=== PATIENT | female | born 1975 | race Caucasian/White ===

== ENCOUNTER 2018-02-06 22:00 | Emergency (ER) | payer MEDICARE, SELFPAY ==
[2018-02-06 22:01] VITALS: BP 135/82; PULSE 85; RESP 14; RESP 16; TEMP 36.5; O2SAT 98; BMI 35.9
[2018-02-06 22:05] VITALS: O2SAT 98
--- NOTE | 2018-02-06 23:30 | CT_ITS ---
STUDY: CT FACIAL BONES WITHOUT CONTRAST REASON FOR EXAM: Female, 42 years old. Fall RADIATION DOSAGE (If Supplied By Facility): CTDIvol = ( 29.38 ) mGy, DLP = ( 518.07 ) mGycm TECHNIQUE: The patient was scanned in a multi detector CT scanner. Sagittal and coronal images were reconstructed. Individualized dose optimization techniques were used for this CT. COMPARISON: None. FINDINGS: There is RIGHT frontal and periorbital soft tissue swelling. There is partial visualization of the LEFT temporal craniotomy. Normal orbital ron and orbital contents. Normal nasal bones and anterior nasal spine. Normal facial bones. There is no demonstrated fracture. Normal visualized paranasal sinuses. CT/Sinus/Facial Bone IMPRESSION: There is RIGHT frontal and periorbital soft tissue swelling. There is partial visualization of the LEFT temporal craniotomy. There is NO acute bony injury. The paranasal sinuses are clear. Electronically Signed: Bryn Goyal MD at 1:05 EDT , Service support ,
--- NOTE | 2018-02-06 23:30 | CT_ITS ---
STUDY: CT CERVICAL SPINE WITHOUT CONTRAST REASON FOR EXAM: Female, 42 years old. Fall RADIATION DOSAGE (If Supplied By Facility): CTDIvol = ( 33.20 ) mGy, DLP = ( 636.23 ) mGycm TECHNIQUE: High resolution transaxial imaging was performed without contrast material. Sagittal and coronal images were reconstructed. Individualized dose optimization techniques were used for this CT. COMPARISON: None FINDINGS: Normal craniovertebral junction. Normal anterior atlantoaxial articulation. Normal odontoid process. Normal cervical lordosis. Normal vertebral bodies and posterior osseous elements. C2-3: Normal endplates. Normal disc height and morphology. Normal central canal and intervertebral neuroforamina. C3-4: Normal endplates. Normal disc height and morphology. Normal central canal and intervertebral neuroforamina. C4-5: Normal endplates. Normal disc height and morphology. Normal central canal and intervertebral neuroforamina. C5-6: Normal endplates. Normal disc height and morphology. Normal central canal and intervertebral neuroforamina. C6-7: Normal endplates. Normal disc height and morphology. Normal central canal and intervertebral neuroforamina. C7-T1: Normal endplates. Normal disc height and morphology. Normal central canal and intervertebral neuroforamina. Normal visualized soft tissue structures. CT/Spine Cervical without Contras IMPRESSION: Normal unenhanced CT examination of the cervical spine. Electronically Signed: Bryn Goyal MD at 1:33 EDT , Service support ,
--- NOTE | 2018-02-06 23:30 | CT_ITS ---
STUDY: CT BRAIN WITHOUT CONTRAST REASON FOR EXAM: Female, 42 years old. Headache RADIATION DOSAGE (If Supplied By Facility): CTDIvol = ( 44.99 ) mGy, DLP = ( 812.98 ) mGycm TECHNIQUE: Transaxial CT imaging of the brain was performed without administration of intravenous contrast material. Individualized dose optimization techniques were used for this CT. COMPARISON: None. FINDINGS: There is RIGHT frontal and periorbital soft tissue swelling. There is a large LEFT frontal craniotomy defect. There is NO skull fracture. Paranasal sinuses are clear. There is a LEFT frontal and parietal subdural hematoma which appears acute and measures up to 1 cm in thickness. There is NO mass effect or midline shift due to extensive encephalomalacia in the LEFT hemisphere presumably from prior infarct. There is also encephalomalacia in the medial LEFT occipital lobe from prior infarct. There is ex vacuo dilatation of the LEFT lateral ventricle. There is chronic deep white matter ischemic gliosis. There is NO evidence of acute ischemic event. The posterior fossa is unremarkable. CT/Brain/Head without Contrast IMPRESSION: There is RIGHT frontal and periorbital soft tissue swelling. There is a large LEFT frontal craniotomy defect. There is a LEFT frontal and parietal subdural hematoma which appears acute and measures up to 1 cm in thickness. There is NO mass effect or midline shift due to extensive encephalomalacia in the LEFT hemisphere presumably from prior infarct. There is also encephalomalacia in the medial LEFT occipital lobe from prior infarct. There is ex vacuo dilatation of the LEFT lateral ventricle. There is chronic deep white matter ischemic gliosis. There is NO evidence of acute ischemic event. N.B. : The above information has been verbally conveyed by Bryn Goyal MD to Isaac Steinberg MD, on 02/07/2018 01:04:43 (ET). Electronically Signed: Bryn Goyal MD at 1:00 EDT , Service support ,
[2018-02-07 00:34] VITALS: BP 122/80
--- NOTE | 2018-02-07 01:25 | ED.VISSUMM ---
- ER Visit Summary Date of Service: 02/07/18 Chief Complaint: Fall with head injury History of Present Illness: The patient is a 42 F presenting for evaluation secondary to fall with head injury. Patient has a very unfortunate prior history of having a left-sided subdural hematoma that resulted in multiple brain surgeries and chronic right-sided hemiparesis. Patient today was attempting to transfer in the bathroom from wheelchair to the toilet and she suffered a mechanical fall. She struck the right side of her face on the ground. Patient denies that there is any loss of consciousness and the patient's family member also corroborates this. Patient is complaining of pain on the right side of her face but denies any weakness or numbness she does endorse a headache she also endorses some feelings of visual changes and she denies any nausea or vomiting. She is not on any sort of anticoagulants. She is also complaining of some neck pain associated with this. Physical Examination: Vital signs within normal limits. Well-nourished female no acute distress. Head is normocephalic with evidence of right sided periorbital hematoma also involving the upper eyelid. PRL, EOMI, no evidence of hyphema. TMs are clear no evidence of hemotympanum. Neck is tender diffusely with both spinal and paraspinal tenderness no evidence of step-offs. Heart is regular rate and rhythm no murmurs lungs sounds clear. Abdomen soft and nontender. Back was nontender. Extremities are atraumatic. Skin is atraumatic. Patient is alert and oriented x3 GCS is 15 she has right-sided hemiparesis at baseline which is unchanged and exhibits no left-sided deficits at this time. Test Results: CT brain shows chronic postsurgical changes on the left with a new subdural hematoma with no evidence of midline shift. Emergency Department Course and Treatment: Patient presented for evaluation secondary to fall. CT imaging demonstrated the patient to have a subdural hematoma. I went back and discussed this with the patient and family and informed her that she required transfer to a trauma center. Patient was adamantly against being transferred back to [facility] and was actually attempting to completely refused to go to a trauma center altogether. She actually is of sound mind, and currently has decision-making capacity as she is alert and oriented, not intoxicated, and while she has a head injury this does not seem to be affecting her decision-making faculties. I had an extensive conversation with her and ultimately was able to get her to agree to go to a different trauma center and [facility] was decided upon. They were contacted and ultimately accepted the patient. As the patient is currently mentating normally, and has decreased brain matter on the side of her subdural hematoma I do not necessarily think that she warrants transfer by air at this point, so the patient will be transferred by ground. Patient was transferred in guarded condition. Disposition: Transfer Impression: 1. Subdural hematoma Critical care time 35 minutes This note was generated with [employer] dictation software. It may contain incorrect words, spelling, and punctuation that were not noted in review of the chart prior to signing ED Disposition - Plan for ED Patient: Disposition: [facility] Chief Complaint: Fall Referrals: Care Physician,No Primary [Primary Care Provider] -
--- NOTE | 2018-02-07 01:29 | ED.DCSUM_ITS ---
- ER Visit Summary Date of Service: 02/07/18 Chief Complaint: Fall with head injury History of Present Illness: The patient is a 42 F presenting for evaluation secondary to fall with head injury. Patient has a very unfortunate prior history of having a left-sided subdural hematoma that resulted in multiple brain surgeries and chronic right-sided hemiparesis. Patient today was attempting to transfer in the bathroom from wheelchair to the toilet and she suffered a mechanical fall. She struck the right side of her face on the ground. Patient denies that there is any loss of consciousness and the patient's family member also corroborates this. Patient is complaining of pain on the right side of her face but denies any weakness or numbness she does endorse a headache she also endorses some feelings of visual changes and she denies any nausea or vomiting. She is not on any sort of anticoagulants. She is also complaining of some neck pain associated with this. Physical Examination: Vital signs within normal limits. Well-nourished female no acute distress. Head is normocephalic with evidence of right sided periorbital hematoma also involving the upper eyelid. PRL, EOMI, no evidence of hyphema. TMs are clear no evidence of hemotympanum. Neck is tender diffusely w ith both spinal and paraspinal tenderness no evidence of step-offs. Heart is regular rate and rhythm no murmurs lungs sounds clear. Abdomen soft and nontender. Back was nontender. Extremities are atraumatic. Skin is atraumatic. Patient is alert and oriented x3 GCS is 15 she has right-sided hemiparesis at baseline which is unchanged and exhibits no left-sided deficits at this time. Test Results: CT brain shows chronic postsurgical changes on the left with a new subdural hematoma with no evidence of midline shift. Emergency Department Course and Treatment: Patient presented for evaluation secondary to fall. CT imaging demonstrated the patient to have a subdural hematoma. I went back and discussed this with the patient and family and informed her that she required transfer to a trauma center. Patient was adamantly against being transferred back to [facility] and was actually attempting to completely refused to go to a trauma center altogether. She actually is of sound mind, and currently has decision-making capacity as she is alert and oriented, not intoxicated, and while she has a head injury this does not seem to be affecting her decision-making faculties. I had an extensive conversation with her and ultimately was able to get her to agree to go to a different trauma center and [facility] was decided upon. They were contacted and ultimately accepted the patient. As the patient is currently mentating normally, and has decreased brain matter on the side of her subdural hematoma I do not necessarily think that she warrants transfer by air at this point, so the patient will be transferred by ground. Patient was transferred in guarded condition. Disposition: Transfer Impression: 1. Subdural hematoma Critical care time 35 minutes This note was generated with [employer] dictation software. It may contain incorrect words, spelling, and punctuation that were not noted in review of the chart prior to signing ED Disposition - Plan for ED Patient: Disposition: [facility] Chief Complaint: Fall Referrals: Care Physician,No Primary [Primary Care Provider] -
[2018-02-07] MEDS: Ondansetron 4 MG/2 ML Vial IV (01:57)
[2018-02-07] MEDS: fentaNYL 100 MCG/2 ML Ampul 25 MCG IV (02:07)
== END 2018-02-07 02:48 | disposition short-term general hospital (02) ==
PROVIDERS: Emergency Provider Emergency Medicine
DX: S06.5X0A Traumatic subdural hemorrhage without loss of consciousness, initial encounter (principal); W18.12XA Fall from or off toilet with subsequent striking against object, initial encounter; G40.909 Epilepsy, unspecified, not intractable, without status epilepticus; G81.91 Hemiplegia, unspecified affecting right dominant side; Z79.899 Other long term (current) drug therapy; Z79.82 Long term (current) use of aspirin
CPT/HCPCS: 70450; 70486; 72125; 96374; 96375; 99285; A4216; J2405

== ENCOUNTER 2018-08-06 10:07 | Outpatient (RCR) | payer MEDICARE, SELFPAY ==
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
== END 2018-08-06 19:00 | disposition home or self-care (01) ==
LOC: PT 10:07
PROVIDERS: Family Provider Nurse Practitioner Adult Health; PCP Nurse Practitioner Adult Health; Referring Provider Nurse Practitioner Adult Health; Visit Provider Nurse Practitioner Adult Health
DX: G44.321 Chronic post-traumatic headache, intractable (principal); M62.81 Muscle weakness (generalized); R29.6 Repeated falls; G81.01 Flaccid hemiplegia affecting right dominant side
CPT/HCPCS: 97162

== ENCOUNTER 2019-01-23 14:14 | Emergency (ER) | payer MEDICARE, SELFPAY ==
[2019-01-23 14:21] VITALS: BP 127/82; PULSE 97; RESP 16; TEMP 36.9; O2SAT 97; BMI 37.1
[2019-01-23 14:53] LABS: Mucous, Urine 0 SEEN /hpf (<or=2+)
[2019-01-23 14:57] LABS: Color, Urine Yellow (Yellow); Glucose, Dipstick Normal (Normal); Ketone-Dipstick Negative (Negative); Leukocyte Esterase-Dipstick 100 /ul (Negative); Nitrite-Dipstick Positive (Negative); Occult Blood-Urine 50 /ul (Negative); Protein-Dipstick Negative (Negative); Urine Bilirubin Dipstick Negative (Negative); Urine Clarity Clear (Clear); Urine Urobilinogen 1 mg/dl (Normal)
[2019-01-23 14:59] LABS: Internal QC Validated? YES +Cl - CLEAR BKGD; Pregnancy, Urine Negative Negative
[2019-01-23 15:05] LABS: Bacteria 2+ /hpf (None Seen); Red Blood Cells-Urine 0-5 SEEN /hpf (0-5); Squamous Epithelial Cells - UA 0-5 SEEN /hpf (5-10); White Blood Cells 10-25 SEEN /hpf (0-5)
--- NOTE | 2019-01-23 15:23 | ED.DCSUM_ITS ---
- ER Visit Summary Date of Service: 01/23/19 Chief Complaint: Pelvic pain History of Present Illness: The patient is a 43 F with pelvic pain for several days. Denies discharge or bleeding. Denies any urinary symptoms. Denies fever or systemic symptoms. She is not currently on antibiotics. Physical Examination: Afebrile and vital signs are unremarkable. Patient has right-sided hemiparesis. She is alert and oriented. Abdomen soft and nontender. Pelvic exam was chaperoned by Maikel and Nalini, both RNs. Patient has no tenderness or masses noted. No lesions, but she does have a thick adherent white discharge. Otherwise exam was unremarkable. Test Results: Urinalysis shows signs of infection. test was negative. Emergency Department Course and Treatment: I believe patient is appropriate for outpatient therapy. She has signs of both a UTI and a yeast infection. She was treated with Diflucan here. We will start a course of Keflex. She will take an additional dose of Diflucan after her antibiotic course. She should return right away for any new or worsening issues. Treatment Plan: As above Disposition: Discharged Impression: 1. Yeast vaginitis 2. UTI, cystitis This note was generated with [employer] dictation software. It may contain incorrect words, spelling, and punctuation that were not noted in review of the chart prior to signing ED Disposition - Plan for ED Patient: Referrals: Kacie Smiley, [facility] [Primary Care Provider] -
--- NOTE | 2019-01-23 15:25 | ED.DEP ---
ED Disposition - Plan for ED Patient: Instructions: Understanding Urinary Tract Infections (UTIs) Prescriptions: Fluconazole [Diflucan] 150 mg PO X1 #1 tab Prescription Printed Cephalexin [Keflex] 500 mg PO Q6 #28 cap Prescription Printed Referrals: Kacie Smiley, [employer] [Primary Care Provider] -
[2019-01-23] MEDS: Fluconazole 100 MG Tablet 150 MG PO (15:31)
[2019-01-23] MEDS: Cephalexin 250 MG Capsule 500 MG PO (15:32)
[2019-01-23] MEDS: Ibuprofen 600 MG Tablet PO (15:33)
[2019-01-23 15:34] VITALS: BP 105/58
== END 2019-01-23 17:56 | disposition home or self-care (01) ==
LOC: ED 14:53
PROVIDERS: Emergency Provider Emergency Medicine; Family Provider Nurse Practitioner Adult Health; PCP Nurse Practitioner Adult Health
DX: B37.3 Candidiasis of vulva and vagina (principal); N39.0 Urinary tract infection, site not specified; G81.91 Hemiplegia, unspecified affecting right dominant side; Z86.73 Personal history of transient ischemic attack (TIA), and cerebral infarction without residual deficits; Z79.899 Other long term (current) drug therapy; Z72.0 Tobacco use
CPT/HCPCS: 81001; 81025; 99285; P9612

== ENCOUNTER 2019-01-31 13:08 | Emergency (ER) | payer MEDICARE, SELFPAY ==
[2019-01-31 13:19] VITALS: BP 123/92; PULSE 75; RESP 16; TEMP 37.2; O2SAT 97; BMI 37.5
--- NOTE | 2019-01-31 13:44 | CT_ITS ---
STUDY: CT FACIAL BONES WITHOUT CONTRAST REASON FOR EXAM: Female, 43 years old. Facial injury due to a fall. RADIATION DOSAGE (If Supplied By Facility): CTDIvol = ( 29.38 ) mGy, DLP = ( 547.46 ) mGycm TECHNIQUE: The patient was scanned in a multi detector CT scanner. Sagittal and coronal images were reconstructed. Individualized dose optimization techniques were used for this CT. COMPARISON: Comparison is made with prior examination of February 07, 2018. FINDINGS: Normal soft tissue structures. Normal orbital ron and orbital contents. Mildly depressed fracture of the nasal bones. Normal facial bones. There is no demonstrated fracture. Small air-fluid level in the left maxillary sinus. Mucosal thickening of the right maxillary sinus. CT/Sinus/Facial Bone IMPRESSION: Mildly depressed fracture nasal bones. Mucosal thickening in the right maxillary sinus as well as a small air-fluid level in the left maxillary sinus. Electronically Signed: Nitesh Kruger, at 14:27 EDT , Service support ,
--- NOTE | 2019-01-31 14:23 | ED.VISSUMM ---
- ER Visit Summary Date of Service: 01/31/19 Chief Complaint: Head injury History of Present Illness: The patient is a 43 F who presents with a head injury that occurred today. Patient states she slipped and fell in the bathroom and hit her head on the bathtub. Patient denies any loss of consciousness. Patient describes the pain is sharp and stabbing. Patient states the pain is localized to the left cheek and infraorbital area. Patient denies any visual changes. Patient denies any paresthesias or weakness. Patient admits to nausea but denies any vomiting. Physical Examination: Vital signs are stable. Patient is afebrile. Patient is in no acute distress. There is edema, ecchymosis, and tenderness over the left infraorbital area and lower eyelid. There is no palpable step-off or deformity. Extraocular muscles are grossly intact however the left eye was difficult to open and completely visualize due to the swelling. Oral mucosa is pink and moist. Neck is supple. Trachea is midline. There is no JVD noted. Heart was regular rate and rhythm. Lungs are clear and equal bilaterally. Abdomen is soft and nontender. Cranial nerves II through XII are grossly intact. There is some residual weakness on her right side due to prior stroke. Patient states this weakness is constant since her last stroke. Patient denies any new weakness. There are no sensory deficits noted. Test Results: CT scan of the facial bones was obtained. There is a mildly depressed fracture of the nasal bones. There is no other acute fracture noted. There is an air-fluid level in the left maxillary sinus. These were interpreted by the radiologist and reviewed by myself. Emergency Department Course and Treatment: Patient was given an ice pack. Patient was instructed to continue using ice. Patient was instructed to take Tylenol as needed for pain. Patient was instructed to follow-up with her primary care physician in 5 to 7 days. Patient and family understood and were agreeable with the plan. All questions were answered. Disposition: Discharge home Impression: 1. Nasal fracture This note was generated with [employer] dictation software. It may contain incorrect words, spelling, and punctuation that were not noted in review of the chart prior to signing ED Disposition - Plan for ED Patient: Disposition: Home or Assisted Living Diagnosis: Nose fracture Instructions: FACIAL CONTUSION, No Wakeup, FRACTURE, Nose (with X-Ray) Referrals: Kacie Smiley, [employer] [Primary Care Provider] - 5-7 Days
[2019-01-31] MEDS: HYDROcodone Bitartrate/Apap 5/325 Tablet PO (14:53)
--- NOTE | 2019-01-31 15:36 | ED.RN ---
[facility] WITH PICK PT UP IN ABOUT AND HOUR AND A HALF
== END 2019-01-31 16:15 | disposition home or self-care (01) ==
PROVIDERS: Emergency Provider Emergency Medicine; Family Provider Nurse Practitioner Adult Health; PCP Nurse Practitioner Adult Health
DX: S02.2XXA Fracture of nasal bones, initial encounter for closed fracture (principal); W01.198A Fall on same level from slipping, tripping and stumbling with subsequent striking against other object, initial encounter; Y93.9 Activity, unspecified; Y92.9 Unspecified place or not applicable; E66.9 Obesity, unspecified; J45.909 Unspecified asthma, uncomplicated; F32.9 Major depressive disorder, single episode, unspecified; F41.9 Anxiety disorder, unspecified; Z86.73 Personal history of transient ischemic attack (TIA), and cerebral infarction without residual deficits; Z79.899 Other long term (current) drug therapy; F17.200 Nicotine dependence, unspecified, uncomplicated
CPT/HCPCS: 70486; 99284

== ENCOUNTER 2019-02-01 03:09 | Emergency (ER) | payer MEDICARE, SELFPAY ==
[2019-01-31 13:19] VITALS: BMI 37.5
[2019-02-01 03:10] VITALS: BP 131/84; PULSE 83; RESP 18; TEMP 37.1; O2SAT 98; BMI 38.0
--- NOTE | 2019-02-01 03:22 | ED.DCSUM_ITS ---
History of Present Illness Chief Complaint: Other, Pain/Inj Informant: Patient Onset: Today Narrative: Presents with left-sided facial pain is continued since her injury earlier this morning. had a mechanical fall hitting her face on the bathtub. She was seen in the ED earlier little over 12 [address] with facial [address] noting nasal bone fracture however there was no facial fracture. She states her swelling has improved with ice, however she still has pain. She is prescribed Cerrillos for pain by her neurologist and pain doctor Dr. Villarreal. Took it 2 and half hours ago states not improving. Denies any new injuries. No anticoagulation medications. No neck or back pain. Prior similar symptoms: Yes Past Medical History - Allergies and Home Meds Allergies/Adverse Reactions: Allergies bee venom protein (honey bee) Allergy (Verified 02/01/19 03:14) Other Penicillins Allergy (Verified 02/01/19 03:14) Unknown morphine Adverse Reaction (Verified 02/01/19 03:14) Itching prochlorperazine edisylate [From Compazine] Adverse Reaction (Verified 02/01/19 03:14) Other prochlorperazine maleate [From Compazine] Adverse Reaction (Verified 02/01/19 03:14) Other Primary Care Physician: Kacie Smiley, [facility]-C [Primary Care Provider] - Smoking Status: Current every day smoker Review of Systems General: Denies: Chills, Fever, Sweats Eyes: Denies: Visual changes - bilaterally, Diplopia ENT: Denies: Rhinorrhea, Sore throat Cardiovascular: Denies: Chest pain, Palpitations Respiratory: Denies: Dyspnea, Cough, Dyspnea on exertion Gastrointestinal: Denies: Abdominal pain, Nausea, Vomiting, Diarrhea, Melena, Hematochezia Genitourinary: Denies: Dysuria, Hematuria, Frequency Musculoskeletal: Denies: Back pain, Extremity Pain Skin: Denies: Rash, Wounds Neurological: Denies: Headache, Weakness, Numbness Physical Exam Vital Signs/Narrative: Vital Signs Temp Pulse Resp BP Pulse Ox 02/01/19 03:10 98.8 F 83 18 131/84 H 98 Inital Vital Signs reviewed: Yes General: Well nourished, Well developed, No Acute Distress Head: Normocephalic, - - There is left abhishek-orbital ecchymosis, there is lateral subconjunctival hemorrhage, there is swelling and ecchymosis to the maxillary extending down to the jaw. No trismus. Skin intact. Eyes: Perrl, EOMI ENT: Moist mucous membranes, No rhinorrhea Neck: Supple, Nontender Cardiovascular: Regular rate, Regular rhythm, No murmurs Respiratory: No distress, CTA bilaterally, Chest nontender Abdomen: Soft, Nontender, Nondistended, Normal bowel sounds Back: Nontender, Normal Inspection Extremities: Nontender, No edema Skin: Normal color, No rash Neurological: Alert, Oriented x3, Cranial nerves II-XII grossly intact, Normal Strength, Normal Sensation Psychological: Normal affect, Normal Mood Diagnostic/Tx/Re-eval - Medical Decision Making patient nontoxic vital signs stable no focal neurologic deficits. Reports to me that her hydrocodone that she has been written for does not help her typical pains. Discussed with patient is written by her neurologist and her pain doctor which needs to be adjusted by them. Review of her facial CTs confirm nasal bone fracture there is no facial fractures. She has facial contusion with pe riorbital ecchymosis small subconjunctival hemorrhage. Ice was placed, discussed continuing ice to help with swelling she reports swelling is actually improved from earlier. She is given IM shot of fentanyl to help with symptoms. She is also given follow-up with ENT as an outpatient. All questions were answered. ED Disposition - Plan for ED Patient: Disposition: Home or Assisted Living Diagnosis: Periorbital ecchymosis of left eye, Facial contusion, Subconjunctival hemorrhage of left eye, Nasal bone fracture Instructions: FRACTURE, Nose (with X-Ray), CONTUSION, PERIORBITAL (BLACK EYE) (Child), Subconjunctival Hemorrhage, FACIAL CONTUSION, No Wakeup Referrals: Kacie Smiley NP-Jose Alberto [Primary Care Provider] - Geronimo Schultz MD [STAFF PHYSICIAN] - 5-7 Days Additional Instructions: Continue to ice to help with swelling. Use your Cerrillos's as prescribed, discussed with your pain specialist adjustments or changes as needed.
[2019-02-01] MEDS: fentaNYL 100 MCG/2 ML Ampul 50 MCG IM (03:29)
--- NOTE | 2019-02-01 04:34 | ED.RN ---
called [facility] for help with a plan to get pt home. stated their nurse comes in at 5 am and they will call us at [facility].
[2019-02-01 04:35] VITALS: BP 109/77; PULSE 79; RESP 16; O2SAT 100
== END 2019-02-01 06:35 | disposition home or self-care (01) ==
LOC: ED 03:37
PROVIDERS: Emergency Provider Emergency Medicine; Family Provider Nurse Practitioner Adult Health; PCP Nurse Practitioner Adult Health
DX: S02.2XXA Fracture of nasal bones, initial encounter for closed fracture (principal); S00.12XA Contusion of left eyelid and periocular area, initial encounter; S00.83XA Contusion of other part of head, initial encounter; H11.32 Conjunctival hemorrhage, left eye; W19.XXXA Unspecified fall, initial encounter; Y93.9 Activity, unspecified; Y92.9 Unspecified place or not applicable; F17.200 Nicotine dependence, unspecified, uncomplicated
CPT/HCPCS: 96372; 99283

== ENCOUNTER 2019-02-02 16:48 | Emergency (ER) | payer MEDICARE, SELFPAY ==
[2019-02-01 03:10] VITALS: BMI 38.0
[2019-02-02 16:49] VITALS: BP 128/87; PULSE 67; RESP 14; TEMP 37.2; O2SAT 99; BMI 36.4
--- NOTE | 2019-02-02 17:07 | ED.VIS.INJ ---
History of Present Illness Chief Complaint: Other, Pain/Inj Informant: Patient Onset: Days - 2 days ago January 31 Mechanism/Context: Blunt Injury, Fall Quality of Pain: Dull, Aching Current Severity: Severe Maximum Severity: Severe Worsened by: Touch Relieved by: Nothing Associated Symptoms: Loss of consciousness - Possibly time of injury. Negative for: Parasthesias, Weakness, Loss of function, Inability to ambulate, Amnesia Narrative: Patient is a 43-year-old woman who is nonambulatory who fell and was initially evaluated on January 31. She had a CT of the face which revealed a fracture of nasal bone. She returned on the . X-ray was reviewed by the physician at that time and no other findings were noted. She states she was treated with fentanyl. She is in pain management. She is presently taking 5 [place] a day. She has no contraindication to NSAIDs. Patient denies headache. She denies nausea or vomiting. She reports nose pain and face pain. She denies double vision, blurred vision or loss of vision. She denies ringing or ears or decreased hearing. She is not on an anticoagulant. She denies difficulty breathing through her nose. Prior similar symptoms: Yes Recent Illness/Hospitalization: Yes Past Medical History - Allergies and Home Meds Allergies/Adverse Reactions: Allergies bee venom protein (honey bee) Allergy (Verified 02/02/19 16:54) Other Penicillins Allergy (Verified 02/02/19 16:54) Unknown morphine Adverse Reaction (Verified 02/02/19 16:54) Itching prochlorperazine edisylate [From Compazine] Adverse Reaction (Verified 02/02/19 16:54) Other prochlorperazine maleate [From Compazine] Adverse Reaction (Verified 02/02/19 16:54) Other Primary Care Physician: Kacie Smiley NP-C [Primary Care Provider] - Prior records reviewed: Yes - History of intracranial bleed Surgical History: noncontributory Lives: Alone Smoking Status: Current every day smoker Alcohol: Rare Drugs: None Review of Systems General: Denies: Chills, Fever, Sweats Eyes: Denies: Visual changes - bilaterally, Blurred Vision - bilaterally, Diplopia ENT: Denies: Bilateral ear pain, Rhinorrhea, Sore throat Cardiovascular: Denies: Chest pain, Palpitations Respiratory: Denies: Dyspnea Gastrointestinal: Denies: Nausea, Vomiting Musculoskeletal: Reports: Swelling - Face and nose with pain. Denies: Myalgias, Arthralgias, Neck pain, Back pain, Extremity Pain Skin: Denies: Rash Neurological: Reports: Headache - Chronic Hematologic: Denies: Easy bruising, Easy bleeding Physical Exam Vital Signs/Narrative: Vital Signs Temp Pulse Resp BP Pulse Ox 02/02/19 16:49 98.9 F 67 14 128/87 H 99 Inital Vital Signs reviewed: Yes General: Well nourished, Well developed, Obese Head: Normocephalic, Trauma, Tenderness, - - There is periorbital ecchymosis left side. There is ecchymosis swelling of the nose. There is a small subconjunctival hemorrhage left. There is no pain the patient over the zygomatic arch. There is no pain to palpation over the TMJ joint. Eyes: Perrl, EOMI, - - Subconjunctival hemorrhage. Negative for: Pale conjunctiva, Scleral icterus ENT: TM's clear, No hemotympanum or drainage, No trauma, Nasal trauma. Negative for: Hemotympanum, Otorrhea, Nasal septal hematoma Neck: Nontender, Full ROM. Negative for: Spinal Tenderness Cardiovascular: Regular rate, Regular rhythm, No murmurs, Normal S1, Normal S2 Respiratory: No distress, CTA bilaterally, Chest nontender Neurological: Alert, Oriented x3. Negative for: Cranial nerves II-XII grossly intact, Normal Strength, Normal Sensation Psychological: Depressed - Glascow Coma Scale Eye Opening: Spontaneous Motor: Obeys Commands Verbal: Oriented Coma Scale Total: 15 Diagnostic/Tx/Re-eval - Medical Decision Making CT of the face from January 31 was reviewed. Only abnormality is a nasal bone fracture. Patient was informed that she would not receive fentanyl. She was informed that since there is no contraindication NSAIDs should be treated with IV Toradol. She initially declined. She was informed since she is in pain management I will not prescribe fentanyl. There is no indication for Dilaudid either. She accepted the Toradol that was offered. ED Disposition - Plan for ED Patient: Disposition: Home or Assisted Living Diagnosis: Pain due to nasal bone texture, Contusion of face, Fracture of nasal bones, subsequent encounter for fracture with routine healing Instructions: Common Myths About Pain Medications, FRACTURE, Nose (with X-Ray) Referrals: Kacie Smiley, CERTIFIED ALCOHOL COUNSELOR-C [Primary Care Provider] - As Needed Additional Instructions: Concur with prior physician that she will need to follow-up with your pain management physician for management of your pain.
[2019-02-02] MEDS: Ketorolac 15 MG/ML Vial IV (17:35)
[2019-02-02 17:41] VITALS: RESP 14
== END 2019-02-02 17:57 | disposition home or self-care (01) ==
LOC: ED 17:34
PROVIDERS: Emergency Provider Emergency Medicine; Family Provider Nurse Practitioner Adult Health; PCP Nurse Practitioner Adult Health
DX: S02.2XXD Fracture of nasal bones, subsequent encounter for fracture with routine healing (principal); S00.83XD Contusion of other part of head, subsequent encounter; H11.32 Conjunctival hemorrhage, left eye; X58.XXXD Exposure to other specified factors, subsequent encounter; E66.9 Obesity, unspecified; F17.200 Nicotine dependence, unspecified, uncomplicated
CPT/HCPCS: 96374; 99285; A4216

== ENCOUNTER 2019-05-05 22:56 | Emergency (ER) | payer MEDICARE, SELFPAY ==
[2019-05-05 23:02] VITALS: BP 136/83; PULSE 92; RESP 18; TEMP 36.9; O2SAT 97; BMI 37.6
--- NOTE | 2019-05-05 23:33 | ED.DCSUM_ITS ---
History of Present Illness Chief Complaint: ETOH Intox Detail of Chief Complaint: depressed Informant: Patient Onset: Today Narrative: Patient is a 43-year-old in independent living and mostly wheelchair-bound because of a stroke affecting the right side of her body, she was drinking today because she is depressed about the of her son which was relatively remote, couple years ago. She states something reminded her of it and it made her sad. She talked with her counselor yesterday regarding this, on Sunday. She sees her counselor weekly concerning all of this. She has had no suicidal thoughts. She was sent here by nursing staff at [facility] [place]. When asked why she is here, she states I am really not sure. She is very nice and forthcoming about everything, states she has not been ill lately, had any injuries, she is not an alcoholic but was drinking whiskey today. - Past Medical History (1) CVA (cerebral vascular accident) Status: Chronic Past Medical History - Allergies and Home Meds Allergies/Adverse Reactions: Allergies bee venom protein (honey bee) Allergy (Verified 05/05/19 23:05) Other Penicillins Allergy (Verified 05/05/19 23:05) Unknown morphine Adverse Reaction (Verified 05/05/19 23:05) Itching prochlorperazine edisylate [From Compazine] Adverse Reaction (Verified 05/05/19 23:05) Other prochlorperazine maleate [From Compazine] Adverse Reaction (Verified 05/05/19 23:05) Other Primary Care Physician: Kacie Smiley, HOLTER SCANNING TECHNICIAN-C [Primary Care Provider] - Surgical History: noncontributory Lives: - - independent living Smoking Status: Current every day smoker Alcohol: Occasional Drugs: None Review of Systems General: Denies: Chills, Fever, Sweats Eyes: Denies: Visual changes - bilaterally, Diplopia ENT: Denies: Rhinorrhea, Sore throat Cardiovascular: Denies: Chest pain, Palpitations Respiratory: Denies: Dyspnea, Cough, Dyspnea on exertion Gastrointestinal: Denies: Abdominal pain, Nausea, Vomiting, Diarrhea, Melena, Hematochezia Genitourinary: Denies: Dysuria, Hematuria, Frequency Musculoskeletal: Denies: Back pain, Swelling, Extremity Pain Skin: Denies: Rash, Wounds Neurological: Reports: Weakness - R side, arm>leg, Numbness - R side, - - speech difficulty, stable. Denies: Headache Psych: Reports: Depression. Denies: Suicidal thoughts, Suicidal ideations Physical Exam Vital Signs/Narrative: Vital Signs Temp Pulse Resp BP Pulse Ox 05/05/19 23:02 98.5 F 92 18 136/83 H 97 Inital Vital Signs reviewed: Yes General: Well nourished, Well developed, Obese, No Acute Distress, - - smells of alcohol. not overtly intoxicated. slurred speech due to old stroke. Head: Normocephalic, Atraumatic Eyes: Perrl, EOMI ENT: Moist mucous membranes, No rhinorrhea Neck: Supple, Nontender Cardiovascular: Regular rate, Regular rhythm, No murmurs Respiratory: No distress, CTA bilaterally, Chest nontender Abdomen: Soft, Nontender, Nondistended, Normal bowel sounds Back: Nontender, Normal Inspection Extremities: Nontender, No edema Skin: Normal color, No rash, No Trauma - no signs of self-harm/mutilation Neurological: Alert, Oriented x3, Cranial nerves II-XII grossly intact - except for mild facial droop right, Normal Strength - throughout left side, Weakness - no movement R arm. able to lift R leg, Right side facial droop - mild Psychological: Normal affect, Tearful - at times Diagnostic/Tx/Re-eval - Medical Decision Making Patient is forthcoming has been talking with her counselor, and has had no thoughts of suicide. There are no signs of self-harm. I do not think she needs any further evaluation here today. She agrees to follow-up with her counselor, return to the ER if she has any suicidal thoughts, or to call crisis. ED Disposition - Plan for ED Patient: Disposition: Home or Assisted Living Diagnosis: Reaction, situational, Dysthymia Instructions: Depression Referrals: Kacie Smiley, [facility]-C [Primary Care Provider] - counselor, your [Other] (keep tabs with your counselor. if you have any thoughts of self-harm/suicide, call crisis at [phone] or return to the ER immediat camila)
[2019-05-05 23:53] VITALS: RESP 18
== END 2019-05-05 23:57 | disposition home or self-care (01) ==
PROVIDERS: Emergency Provider Emergency Medicine; Family Provider Nurse Practitioner Adult Health; PCP Nurse Practitioner Adult Health
DX: F34.1 Dysthymic disorder (principal); F43.20 Adjustment disorder, unspecified; F10.129 Alcohol abuse with intoxication, unspecified; Y90.9 Presence of alcohol in blood, level not specified; E66.9 Obesity, unspecified; I69.351 Hemiplegia and hemiparesis following cerebral infarction affecting right dominant side; I69.328 Other speech and language deficits following cerebral infarction; I69.392 Facial weakness following cerebral infarction; Z79.899 Other long term (current) drug therapy; F17.200 Nicotine dependence, unspecified, uncomplicated
CPT/HCPCS: 99285

== ENCOUNTER → 2020-01-28 14:45 | Outpatient (CLI) | payer MEDICAID, SELFPAY ==
--- NOTE | 2020-01-28 14:51 | CT_ITS ---
STUDY: CT BRAIN WITH AND WITHOUT CONTRAST REASON FOR EXAM: Female, 44 years old. HEADACHES. PRIOR BRAIN INJURY WITH BLEED. 3 PRIOR BRAIN SURGERIES RADIATION DOSAGE (If Supplied By Facility): CTDIvol = ( 60.81 ) mGy, DLP = ( 2126.79 ) mGycm TECHNIQUE: Transaxial CT imaging of the brain was performed pre and post contrast administration. The examination was performed with intravenous administration of IV 50mL Isovue-370. Individualized dose optimization techniques were used for this CT. COMPARISON: 02/07/2018 FINDINGS: Normal soft tissue structures. Left frontotemporoparietal craniotomy. Stable extensive left cerebral encephalomalacia with ex vacuo prominence of the left lateral ventricle. There is no intracranial hemorrhage. There are no findings of an acute ischemic infarction. Normal visualized paranasal sinuses. CT/Brain/Head W/WO Contrast IMPRESSION: No evidence of acute infarct or hemorrhage. No evidence of mass or abnormal enhancement. Electronically Signed: Micheal Lawrence MD at 19:01 EDT Tel , Service support ,
== END ==
PROVIDERS: PCP Nurse Practitioner Adult Health; Referring Provider Nurse Practitioner Adult Health; Visit Provider Nurse Practitioner Adult Health
DX: G91.9 Hydrocephalus, unspecified (principal); R51 Headache
CPT/HCPCS: 70470; Q9967

== ENCOUNTER → 2020-02-17 13:16 | Outpatient (CLI) | payer MEDICARE, MEDICAID, SELFPAY ==
[2020-02-17 14:40] LABS: Hematocrit 37.9 % (37-47); Hemoglobin 12.6 g/dL (12.0-15.0); Mean Corp Hgb Conc 33.2 g/dL (32-36); Mean Corpuscular Hgb 33.2 pg (27.0-32.0); Mean Corpuscular Volume 99.7 fL (81-99); Mean Platelet Vol. 9.7 fl (6.2-12.0); Platelet Count 258 K/mm3 (150-450); RBC Distribution Width CV 12.9 % (11.6-14.6); White Blood Count 5.4 K/mm3 (4.4-11.0)
[2020-02-17 15:14] LABS: ALB/GLOB Ratio 1.2 RATIO (0.9-2.4); AST(SGOT) 26 U/L (15-37); Alanine Aminotransfer ALT/SGPT 52 U/L (13-56); Albumin, Serum 4.2 g/dL (3.2-5.0); Alkaline Phosphatase 79 U/L (45-117); Anion Gap 10 (5-15); BUN 9 mg/dL (7-18); BUN/Creat Ratio 14.2 RATIO (10-20); Calcium,Total 8.7 mg/dL (8.5-10.1); Chloride 110 mmol/L (98-107); Cholesterol 235 mg/dL (200); Creatinine, Serum 0.63 mg/dL (0.55-1.02); EST Glomerular Filtration Rate 109 mL/min (>60); Est Glom Filt Rate - Afr Amer 131 mL/min (>60); Globulin 3.5 g/dL (2.2-4.2); Glucose 75 mg/dL (74-106); High Density Lipoprotein 35 mg/dL; Potassium 3.7 mmol/L (3.5-5.1); Protein, Total 7.7 g/dL (6.4-8.2); Sodium Level 140 mmol/L (136-145); Thyroid Stim Hormone (TSH) 0.83 uIU/mL (0.358-3.74); Triglycerides 206 mg/dL; Very Low Density Lipoprotein 41 mg/dL (5-40)
[2020-02-24 12:06] LABS: KEPPRA (LEVETIRACETAM) 27.1 ug/mL (10.0-40.0)
== END ==
PROVIDERS: PCP Nurse Practitioner Adult Health; Referring Provider Nurse Practitioner Adult Health; Visit Provider Nurse Practitioner Adult Health
DX: G40.319 Generalized idiopathic epilepsy and epileptic syndromes, intractable, without status epilepticus (principal); I10 Essential (primary) hypertension; E78.2 Mixed hyperlipidemia; G44.321 Chronic post-traumatic headache, intractable; G40.001 Localization-related (focal) (partial) idiopathic epilepsy and epileptic syndromes with seizures of localized onset, not intractable, with status epilepticus; F41.1 Generalized anxiety disorder
CPT/HCPCS: 36415; 80053; 80061; 80177; 84443; 85027

== ENCOUNTER 2020-03-01 08:12 | Day surgery (SDC) | payer MEDICARE, MEDICAID, SELFPAY ==
[2020-03-01] VITALS (7 sets, daily range): BP systolic 105–127; BP diastolic 73–80; PULSE 64–76; RESP 16–18; TEMP 37.1; O2SAT 94–96; BMI 37.8
[2020-03-01] MEDS: Lactated Ringers 1,000 ML 100 ML IV (08:25)
[2020-03-01] MEDS: MethylPREDNISolone Acetate 40 MG/ML Vial IM (10:06)
[2020-03-01] MEDS: Bupivacaine 0.25% 30 ML Vial (10:06)
--- NOTE | 2020-03-01 14:41 | OP.PCM_ITS ---
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 PROCEDURE PERFORMED: Right-sided scar neuroma injection of the scalp under anesthesia ANESTHESIA: MAC. BLOOD LOSS: Minimal. COMPLICATIONS: None. DESCRIPTION OF PROCEDURE: History and physical of today was reviewed. Risks and benefits of the procedure were explained. The patient understood and agreed to the procedure. Informed consent was obtained. IV inserted per routine protocol. The patient was taken to the operating room and placed in the supine position. The right side of the scalp area at the temporal as well as the parietal region was prepped and draped in a sterile fashion using iodine using a 25-gauge regular needle the scar neuroma was injected in a fanlike fashion in multiple direction at the longitudinal plane with approximately 4 cc of preservative-free 0.25% Marcaine and 2% lidocaine with a trace of Depo-Medrol approximately 20 mg after negative aspiration for blood. The needle was then removed intact. The patient experienced no sign or symptoms of intravascular i njection. The patient experienced no paresthesia. The procedure was completed without any apparent difficulty or any complications. The patient appeared to tolerate it well. Assessment and plan: This is a 44-year-old female with a scar neuroma of the right side of the scalp status post right-sided scar neuroma injection of the scalp under anesthesia, patient will continue her current medications, patient will follow up in approximately 2 weeks for reevaluation.
== END 2020-03-01 11:15 | disposition home or self-care (01) ==
LOC: SDC 08:13 → AC 08:51
PROVIDERS: PCP Nurse Practitioner Adult Health; Referring Provider Anesthesiology Pain Medicine; Visit Provider Anesthesiology Pain Medicine
PROC: 3E0U3GC Introduction of Other Therapeutic Substance into Joints, Percutaneous Approach (ICD-10-PCS; CPT 20605; principal; 2020-03-01 09:25)
DX: D36.11 Benign neoplasm of peripheral nerves and autonomic nervous system of face, head, and neck (principal); F32.9 Major depressive disorder, single episode, unspecified; E78.00 Pure hypercholesterolemia, unspecified; D64.9 Anemia, unspecified; F41.9 Anxiety disorder, unspecified; G40.909 Epilepsy, unspecified, not intractable, without status epilepticus; G43.909 Migraine, unspecified, not intractable, without status migrainosus; Z79.899 Other long term (current) drug therapy
CPT/HCPCS: 01999; 64999; J7120

== ENCOUNTER → 2020-05-03 12:49 | Outpatient (CLI) | payer MEDICARE, MEDICAID, SELFPAY ==
[2020-03-01 08:35] VITALS: BMI 37.8
--- NOTE | 2020-05-03 13:40 | RAD_ITS ---
STUDY: X-RAY - CERVICAL SPINE REASON FOR EXAM: Female, 44 years old. Neck pain. nki TECHNIQUE: 3 view(s) of the cervical spine were obtained. COMPARISON: None FINDINGS: Normal anterior atlantoaxial articulation. Normal odontoid process. Normal cervical lordosis. Normal vertebral bodies and endplates. Normal disc space heights. Normal visualized intervertebral neuroforamina. The soft tissue structures are unremarkable. RAD/Cerv Spine 2 or 3 Views IMPRESSION: Normal x-ray examination of the visualized cervical spine. Electronically Signed: Bruce Whaley MD at 20:33 EST , Service support ,
--- NOTE | 2020-05-03 13:51 | RAD_ITS ---
STUDY: X-RAY - LUMBAR SPINE REASON FOR EXAM: Female, 44 years old. Low back pain TECHNIQUE: 3 view(s) of the lumbar spine were obtained. COMPARISON: None FINDINGS: Normal lumbar lordosis. There is no substantial scoliosis. There is a normal alignment of the vertebrae. Normal vertebral bodies and endplates. Normal disc space heights. The soft tissue structures are unremarkable. RAD/Lumbar Spine 2 or 3 Views IMPRESSION: Normal x-ray examination of the lumbar spine. Electronically Signed: Bruce Whaley MD at 20:33 EST , Service support ,
[2020-05-03 13:55] LABS: Amphetamine Urine VISTA NEGATIVE (<1000 ng/mL); Barbiturate Urine VISTA NEGATIVE (< 200 ng/mL); Benzodiazepine Urine VISTA NEGATIVE (< 200 ng/mL); Cocaine Urine VISTA NEGATIVE (< 300 ng/mL); Ecstacy Urine VISTA NEGATIVE (< 500 ng/mL); Methadone Urine VISTA NEGATIVE (< 300 ng/mL); PCP Urine VISTA NEGATIVE (< 25 ng/mL); THC Urine VISTA NEGATIVE (< 50 ng/mL); Vista UDS pH Range 5
== END ==
PROVIDERS: PCP Nurse Practitioner Adult Health; Referring Provider Anesthesiology Pain Medicine; Visit Provider Anesthesiology Pain Medicine
DX: M54.2 Cervicalgia (principal); M54.9 Dorsalgia, unspecified; F11.20 Opioid dependence, uncomplicated
CPT/HCPCS: 72040; 72100; 80307

== ENCOUNTER → 2020-08-30 10:53 | Outpatient (CLI) | payer MEDICARE, MEDICAID, SELFPAY ==
[2020-03-01 08:35] VITALS: BMI 37.8
[2020-08-30 11:20] LABS: Absolute Lymphocyte Count 1.81 X10^3/uL (0.83-4.51); Basophil# 0.03 X10^3/uL; Basophil% 0.5 % (0-1); Eosinophil# 0.13 X10^3/uL; Eosinophils% 2.1 % (0-5); Hematocrit 40.4 % (37-47); Hemoglobin 12.9 g/dL (12.0-15.0); Lymphocyte # 1.81 X10^3/ul (0.83-4.51); Lymphocyte % 28.6 % (19-41); Mean Corp Hgb Conc 31.9 g/dL (32-36); Mean Corpuscular Hgb 32.8 pg (27.0-32.0); Mean Corpuscular Volume 102.8 fL (81-99); Mean Platelet Vol. 8.9 fl (6.2-12.0); Monocyte# 0.32 X10^3/uL; Monocyte% 5.1 % (0-10); NRBC Flagged by Analyzer 0 % (0-5); Neutrophil # 4.02 X10^3/uL (2.7-7.7); Neutrophil % 63.4 % (47-70); Platelet Count 215 K/mm3 (150-450); RBC Distribution Width CV 11.9 % (11.6-14.6); RBC Distribution Width SD 44.9 fl (35.1-43.9); Red Blood Count 3.93 M/mm3 (4.2-5.4); White Blood Count 6.3 K/mm3 (4.4-11.0)
[2020-08-30 11:54] LABS: ALB/GLOB Ratio 1.1 RATIO (0.9-2.4); AST(SGOT) 30 U/L (15-37); Alanine Aminotransfer ALT/SGPT 69 U/L (13-56); Albumin, Serum 4.2 g/dL (3.2-5.0); Alkaline Phosphatase 97 U/L (45-117); Anion Gap 10 (5-15); BUN 14 mg/dL (7-18); BUN/Creat Ratio 20.1 RATIO (10-20); Calcium,Total 8.9 mg/dL (8.5-10.1); Chloride 107 mmol/L (98-107); Cholesterol 155 mg/dL (200); EST Glomerular Filtration Rate 97 mL/min (>60); Est Glom Filt Rate - Afr Amer 117 mL/min (>60); Globulin 3.9 g/dL (2.2-4.2); Glucose 77 mg/dL (74-106); High Density Lipoprotein 42 mg/dL; Magnesium 2.4 mg/dL (1.6-2.6); Potassium 4.3 mmol/L (3.5-5.1); Protein, Total 8.1 g/dL (6.4-8.2); Sodium Level 141 mmol/L (136-145); Thyroid Stim Hormone (TSH) 1.64 uIU/mL (0.358-3.74); Triglycerides 111 mg/dL; Very Low Density Lipoprotein 22 mg/dL (5-40)
== END ==
PROVIDERS: PCP Nurse Practitioner Adult Health
DX: I10 Essential (primary) hypertension (principal); K21.9 Gastro-esophageal reflux disease without esophagitis; G40.909 Epilepsy, unspecified, not intractable, without status epilepticus; F41.9 Anxiety disorder, unspecified; E78.5 Hyperlipidemia, unspecified
CPT/HCPCS: 36415; 80053; 80061; 80177; 83735; 84443; 85025

== ENCOUNTER 2021-01-07 08:51 | Day surgery (SDC) | payer MEDICARE, MEDICAID, SELFPAY ==
[2021-01-07] VITALS (8 sets, daily range): BP systolic 109–139; BP diastolic 54–97; PULSE 73–109; RESP 16–18; TEMP 36–37; O2SAT 92–100; BMI 36.0
[2021-01-07] MEDS: Lactated Ringers 1,000 ML 100 ML IV (09:40)
--- NOTE | 2021-01-07 11:00 | RAD_ITS ---
STUDY: X-RAY - LUMBAR SPINE REASON FOR EXAM: Female, 45 years old. INSERTION, PAIN PUMP, IMPLANTABLE,BACLOFEN TECHNIQUE: 1 view of the lumbar spine were obtained. COMPARISON: None FINDINGS: A single lateral/somewhat oblique intraoperative image of the thoracic or lumbar spine was obtained. There there appears to be an implantable pump entering within the upper lumbar spine at approximately L1/L2 terminating within the mid/lower thoracic spine. Please refer to the intraoperative report for further discussion. Electronically Signed: Nguyen Erazo MD at 12:22 EDT Tel , Service support , RAD/Spine 1 View Any Level
[2021-01-07] MEDS: 0.9% Normal Saline (Pres. free 10 ML Vial (12:18)
[2021-01-07] MEDS: Bupivacaine 0.25% 30 ML Vial (12:18)
[2021-01-07] MEDS: Lidocaine 1% /Epi 1:100 (50ml) 50 ML VIAL (12:19)
== END 2021-01-07 15:30 | disposition home or self-care (01) ==
LOC: SDC 08:51 → AC 08:53
PROVIDERS: PCP Nurse Practitioner Adult Health; Referring Provider Anesthesiology Pain Medicine; Visit Provider Anesthesiology Pain Medicine
PROC: (CPT 62350; principal; 2021-01-07 10:15)
DX: G89.4 Chronic pain syndrome (principal); M62.40 Contracture of muscle, unspecified site; M62.838 Other muscle spasm; G81.90 Hemiplegia, unspecified affecting unspecified side; F41.9 Anxiety disorder, unspecified; F32.9 Major depressive disorder, single episode, unspecified; K21.9 Gastro-esophageal reflux disease without esophagitis; E78.00 Pure hypercholesterolemia, unspecified; G43.909 Migraine, unspecified, not intractable, without status migrainosus; Z79.82 Long term (current) use of aspirin; Z79.899 Other long term (current) drug therapy
CPT/HCPCS: 01992; 62350; 62362; 72020; 76000; J7120; J0475; J2405; J3490

== ENCOUNTER 2021-01-08 19:21 | Emergency (ER) | payer MEDICARE, SELFPAY ==
[2021-01-08 19:22] VITALS: BP 143/84; PULSE 90; RESP 20; TEMP 36.4; BMI 36.0
[2021-01-08 21:42] VITALS: O2SAT 96
--- NOTE | 2021-01-08 22:13 | EDS_ITS ---
HPI History of Present Illness Chief Complaint: Back Narrative Narrative: Patient had a pain pump surgically placed yesterday. Reportedly has been complaining of increased pain today despite wearing her buprenorphine patch. 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 The patient denies any fevers or chills or loss of bowel or bladder control PFSH [facility] Medical History Anxiety Depression Gastric reflux High cholesterol Injury of head and neck Low iron Migraine headache Sacral nerve stimulator present Seizures Shortness of breath on exertion Smoker TBI (traumatic brain injury) Home Medications acetaminophen [Tylenol] 1,000 mg PO TID 02/07/18 [History Last Taken Unknown] baclofen 10 mg PO 4X/DAY 02/07/18 [History Last Taken Unknown] gabapentin 800 mg PO TID 02/07/18 [History Last Taken Unknown] lacosamide [Vimpat] 100 mg PO BID 02/07/18 [History Last Taken Unknown] levetiracetam 1,000 mg PO Q12H 02/07/18 [History Last Taken Unknown] omeprazole 40 mg PO DAILY 02/07/18 [History Last Taken Unknown] ferrous sulfate 325 mg PO DAILY 01/31/19 [History Last Taken Unknown] rizatriptan 10 mg PO Q2H PRN PRN 01/31/19 [History Last Taken Unknown] atorvastatin 10 mg PO QHS 02/27/20 [History Last Taken Unknown] cranberry 400 mg PO DAILY 02/27/20 [History Last Taken Unknown] hydroxyzine pamoate 50 mg PO TID PRN PRN 02/27/20 [History Last Taken Unknown] ibuprofen 800 mg PO BID PRN PRN 02/27/20 [History Last Taken Unknown] venlafaxine 37.5 mg PO BID 02/27/20 [History Last Taken Unknown] albuterol sulfate [ProAir HFA] 2 puff INHALATION Q4H PRN 01/06/21 [History Last Taken Unknown] aspirin 325 mg PO DAILY PRN 01/06/21 [History Last Taken Unknown] buprenorphine 1 patch TRANSDERMAL QWEEK 01/06/21 [History Last Taken Unknown] lactulose 10 g PO DAILY PRN 01/06/21 [History Last Taken Unknown] polyethylene glycol 3350 [Miralax] 17 g PO DAILY PRN PRN 01/06/21 [History Last Taken Unknown] sennosides-docusate sodium [Senna-S] 2 tab-cap PO QHS 01/06/21 [History Last Taken Unknown] Allergy/AdvReac Type Severity Reaction Status Date / Time bee venom protein (honey bee) Allergy Other Verified 01/08/21 21:21 Penicillins Allergy Unknown Verified 01/08/21 21:21 morphine AdvReac Itching Verified 01/08/21 21:21 prochlorperazine edisylate AdvReac Other Verified 01/08/21 21:21 [From Compazine] prochlorperazine maleate AdvReac Other Verified 01/08/21 21:21 [From Compazine] Surgical History History of brain surgery History of tubal ligation Social History Smoking Status: Current every day smoker tobacco type: e-cigarettes ROS ROS ED Constitutional Constitutional ED: Denies chills or fever(s) ENT ENT ED: Denies sore throat Cardiovascular Cardiovascular: Denies chest pain Respiratory/Chest Respiratory/Chest: Denies cough or dyspnea Gastrointestinal Gastrointestinal: Denies abdominal pain, diarrhea, nausea or vomiting Genitourinary Genitourinary ED: Denies dysuria Musculoskeletal Musculoskeletal: Reports back pain; Denies myalgias Integumentary Denies rash Neurologic Neurologic: Denies headache(s) Hematologic/Lymphatic Hematologic/Lymphatic: Denies easy bleeding or easy bruising EXAM Physical Exam Const Vital Signs: 01/08/21 19:22 01/08/21 21:42 Temperature 97.6 F L Temperature Source Temporal Pulse Rate 90 Respiratory Rate 20 H Blood Pressure 143/84 H Blood Pressure Mean 103 Pulse Ox 96 Oxygen Delivery Method Room Air Positive well nourished and well developed General Appearance ED: well developed Eyes PERRL and EOMs intact bilaterally Neck supple Resp normal respiratory effort and clear to auscultation bilaterally Cardio regular rate and regular rhythm GI non-tender and non-distended Auscultation: normoactive bowel sounds Palpation: soft Back/Spine Back/Spine Narrative: Patient has a surgical incision over the midline of of her lower thoracic/upper lumbar spine. The incision is clean dry and intact and there is no surrounding erythema warmth discharge or lymphangitic streaking to suggest secondary infection Extremity normal to inspection Neuro oriented x3 and CN's II-XII intact bilaterally Sensorium / Orientation: alert Psych mental status grossly normal Skin no rashes or lesions noted Skin Narrative: Surgical changes to the back as documented above MDM MDM MDM Narrative Medical decision making narrative: Patient presented to the ER with stable vitals. The surgical incision looked clean dry and intact without secondary changes to suggest infection. Therefore at this time I feel her pain is related to just postoperative pain as she does not have any signs of infection or vital sign derangement to suggest this. I do not feel there is need for imaging or laboratory studies at this time so patient will be given IM pain medication to help control her postoperative pain and will be discharged Discharge Plan Triage Chief Complaint: Back ED Provider: Brian Brooks Dx/Rx/DC Orders Clinical Impression: Post-operative pain Instructions: Pain Management After Surgery Prescriptions: No Action baclofen 10 MG tablet 10 mg PO 4X/DAY RF: 0 acetaminophen [Tylenol] 325 MG tablet 1,000 mg PO TID RF: 0 gabapentin 400 MG capsule 800 mg PO TID RF: 0 omeprazole 40 MG capsule,delayed release(DR/EC) 40 mg PO DAILY RF: 0 levetiracetam 1,000 MG tablet 1,000 mg PO Q12H RF: 0 Vimpat 50 MG tablet 100 mg PO BID RF: 0 rizatriptan 10 MG tablet 10 mg PO Q2H PRN PRN (Reason: Migraine Symptoms) RF: 0 ferrous sulfate 325 MG tablet 325 mg PO DAILY RF: 0 venlafaxine 37.5 MG capsule,extended release 24hr 37.5 mg PO BID RF: 0 atorvastatin 10 MG tablet 10 mg PO QHS RF: 0 ibuprofen 800 MG tablet 800 mg PO BID PRN PRN (Reason: Pain 1-10 Or Fever) RF: 0 hydroxyzine pamoate 50 MG capsule 50 mg PO TID PRN PRN (Reason: Anxiety) RF: 0 cranberry 400 MG capsule 400 mg PO DAILY RF: 0 polyethylene glycol 3350 [Miralax] 17 gram Powder In Packet 17 g PO DAILY PRN PRN (Reason: Constipation) RF: 0 aspirin 325 mg Tablet 325 mg PO DAILY PRN (Reason: Pain) RF: 0 albuterol sulfate [ProAir HFA] 90 mcg/actuation Hfa Aerosol Inhaler 2 puff INHALATION Q4H PRN (Reason: sob) RF: 0 lactulose 10 gram/15 mL Solution 10 g PO DAILY PRN (Reason: Pain) RF: 0 sennosides-docusate sodium [Senna-S] 8.6-50 mg Tablet 2 tab-cap PO QHS RF: 0 buprenorphine 20 mcg/hour Patch Weekly 1 patch TRANSDERMAL QWEEK RF: 0 Primary Care Provider: Kacie Smiley [employer] Referrals: Kacie Smiley [employer] C[employer], [employer] C[employer]-C [Primary Care Provider] - Disposition Disposition: Home, Self Care
[2021-01-08] MEDS: HYDROmorphone 1 MG/ML Syringe 2 MG IM (22:28)
[2021-01-08] MEDS: Ondansetron ODT 4 MG Tablet PO (22:28)
== END 2021-01-08 22:53 | disposition home or self-care (01) ==
PROVIDERS: Emergency Provider Emergency Medicine; PCP Nurse Practitioner Adult Health
DX: M54.9 Dorsalgia, unspecified (principal); Z97.8 Presence of other specified devices; F32.9 Major depressive disorder, single episode, unspecified; F41.9 Anxiety disorder, unspecified; K21.9 Gastro-esophageal reflux disease without esophagitis; E78.00 Pure hypercholesterolemia, unspecified; G40.909 Epilepsy, unspecified, not intractable, without status epilepticus; G43.909 Migraine, unspecified, not intractable, without status migrainosus; Z87.820 Personal history of traumatic brain injury; Z79.899 Other long term (current) drug therapy; F17.290 Nicotine dependence, other tobacco product, uncomplicated
CPT/HCPCS: 96372; 99284

== ENCOUNTER 2021-07-07 11:46 | Outpatient (CLI) | payer MEDICARE, SELFPAY ==
[2021-07-07 12:13] LABS: Hematocrit 39.2 % (37-47); Hemoglobin 13.2 g/dL (12.0-15.0); Mean Corp Hgb Conc 33.7 g/dL (32-36); Mean Corpuscular Hgb 33.8 pg (27.0-32.0); Mean Corpuscular Volume 100.5 fL (81-99); Platelet Count 211 K/mm3 (150-450); RBC Distribution Width CV 12.5 % (11.6-14.6); RBC Distribution Width SD 46.6 fl (35.1-43.9)
[2021-07-07 12:50] LABS: Vitamin B12 446 pg/mL (211-911)
[2021-07-07 12:55] LABS: ALB/GLOB Ratio 1.2 RATIO (0.9-2.4); AST(SGOT) 16 U/L (15-37); Alanine Aminotransfer ALT/SGPT 25 U/L (13-56); Albumin, Serum 4.3 g/dL (3.2-5.0); Alkaline Phosphatase 63 U/L (45-117); Anion Gap 4 (5-15); BUN 12 mg/dL (7-18); BUN/Creat Ratio 19.2 RATIO (10-20); Calcium,Total 9.6 mg/dL (8.5-10.1); Chloride 109 mmol/L (98-107); Cholesterol 152 mg/dL (200); Creatinine, Serum 0.63 mg/dL (0.55-1.02); EST Glomerular Filtration Rate 109 mL/min (>60); Est Glom Filt Rate - Afr Amer 132 mL/min (>60); Globulin 3.6 g/dL (2.2-4.2); Glucose 88 mg/dL (74-106); High Density Lipoprotein 36 mg/dL; Magnesium 1.9 mg/dL (1.6-2.6); Protein, Total 7.9 g/dL (6.4-8.2); Sodium Level 138 mmol/L (136-145); Thyroid Stim Hormone (TSH) 1.78 uIU/mL (0.358-3.74); Triglycerides 122 mg/dL; Very Low Density Lipoprotein 24 mg/dL (5-40)
[2021-07-12 13:15] LABS: KEPPRA (LEVETIRACETAM) 42.5 ug/mL (10.0-40.0)
== END 2021-07-07 23:59 | disposition home or self-care (01) ==
LOC: LAB 11:48
PROVIDERS: PCP Nurse Practitioner Adult Health; Visit Provider Nurse Practitioner Adult Health
DX: G40.319 Generalized idiopathic epilepsy and epileptic syndromes, intractable, without status epilepticus (principal); G81.01 Flaccid hemiplegia affecting right dominant side; F33.1 Major depressive disorder, recurrent, moderate; I10 Essential (primary) hypertension; E78.2 Mixed hyperlipidemia; F51.01 Primary insomnia
CPT/HCPCS: 36415; 80053; 80061; 80177; 82306; 82607; 83735; 84443; 85027

== ENCOUNTER 2022-07-13 10:04 | Day surgery (SDC) | payer MEDICARE, MEDICAID, SELFPAY ==
[2022-07-13] VITALS (7 sets, daily range): BP systolic 100–118; BP diastolic 60–83; PULSE 72–77; RESP 16–18; TEMP 36.2–36.9; O2SAT 95–98; BMI 39.4
--- NOTE | 2022-07-13 08:12 | PCM.OPRPT ---
Report of Operation Date of Procedure: 07/13/22 Pre-Operative Diagnosis: urge incontinence, nocturia, frequency Post-Operative Diagnosis: same Surgery/Procedure Performed:: Axonics Stage 1 Surgeon: Jerrica Liriano Type of Anesthesia: MAC Description of Procedure: The patient is a 46-year-old female who has failed conservative management for her urinary frequency, nocturia and urge incontinence. Informed consent was obtained and she has decided to proceed with Axonics stage I trial. She was taken to the operating room and placed in a prone position on the operating table. She was appropriately supported and secured to the table. Anesthesia monitored the head, neck, airway, IV access and vital signs throughout the case. Once anesthesia was appropriately administered, the patient was prepped and draped in usual sterile fashion. Using fluoroscopic visualization, the pelvic anatomy was outlined on her skin. The area on the right was infiltrated with local anesthetic and the needle was placed through the S3 foramen. There was a good rosa response. The guidewire was then inserted, the skin incision was made, and the dilator was placed. The lead was inserted through the dilator with good positioning seen on fluoroscopic visualization. There was good response on all 4 leads. The lead was left in situ and the sheath was removed. The lead was tunneled to the selected pocket site on the patient's right side which was made using the knife, blunt dissection and Bovie cautery for hemostasis. Once in the pocket site, the lead was dried and inserted into the lead extension which was tunneled to the contralateral side. The pocket was closed with 3-0 Vicryl followed by 4-0 Monocryl and Dermabond. The midline incision was closed with Steri-Strip. The lead extension was secured to the skin using Steri-Strips. An OpSite was then placed followed by cloth tape. The patient was then awakened and taken to the recovery room in good condition. There were no complications during this procedure. Grafts/Implants Used: Axoncs lead and lead extension Complications none Admit VTE Documentation VTE Present on Admission: No VTE Pharm Prophylaxis ordered?: No Reason prophylaxis not ordered:: Treatment Not Indicated
--- NOTE | 2022-07-13 08:13 | DCINST_ITS ---
Discharge Instructions Diet Discharge Diet: No restrictions Activity Discharge Activity: May Not Shower May resume sexual activity in: 3 weeks Dressing / Incision Call your doctor if your incision/area has: Continuous Slow Oozing, Sudden Increased Bleeding, Increased Pain/ Swelling, Increased Redness, Foul Smelling Discharge and Swelling at the incision site Call your doctor if you observe: Fever of 101 or Higher, Inability to urinate and Inability to have a bowel movement Suture Line Care: Avoid Pulling/Pushing and Avoid Pinching/Bending Change Dressing in: do not change dressing Remove Dressing in: do not remove dressing Cleanse incision/area with: Keep Dressing Clean & Dry Follow Up Care Please Follow Up With: Jerrica Liriano MD When: next week as scheduled Test Results: Test results from this visit will be discussed in further detail at your follow- up appointment, if applicable. Discharge Plan Admission Attending Provider: Jerrica Liriano Primary Care Provider: Kacie Smiley [employer] AND SADDLE REPAIR PERSON Discharge Orders/Prescriptions Prescriptions: New oxycodone-acetaminophen [Percocet] 5-325 mg tablet 1 tab PO Q8H 3 Days Qty: 9 0RF cephalexin [cephalexin] 500 mg capsule 500 mg PO Q12 3 Days Qty: 6 0RF Continued baclofen 10 MG tablet 10 mg PO 4X/DAY acetaminophen [Tylenol] 325 MG tablet 1,000 mg PO TID gabapentin 400 MG capsule 800 mg PO TID omeprazole 40 MG capsule,delayed release(DR/EC) 40 mg PO DAILY levetiracetam 1,000 MG tablet 1,000 mg PO Q12H lacosamide [Vimpat] 50 MG tablet 100 mg PO BID ferrous sulfate 325 MG tablet 325 mg PO DAILY venlafaxine 37.5 MG capsule,extended release 24hr 37.5 mg PO DAILY atorvastatin 10 MG tablet 10 mg PO QHS ibuprofen 800 MG tablet 800 mg PO BID PRN PRN (Reason: Pain 1-10 Or Fever) hydroxyzine pamoate 50 MG capsule 50 mg PO TID PRN PRN (Reason: Anxiety) albuterol sulfate [ProAir HFA] 90 mcg/actuation Hfa Aerosol Inhaler 2 puff INHALATION Q4H PRN (Reason: sob) lactulose 10 gram/15 mL Solution 10 g PO DAILY PRN (Reason: Constipation) sennosides-docusate sodium [Senna-S] 8.6-50 mg Tablet 2 tab-cap PO DAILY venlafaxine 75 mg Tablet 75 mg PO QHS sumatriptan succinate 50 mg Tablet 50 mg PO Q2H PRN (Reason: Migraine Headache) Rx Instructions: do not exceed 4 doses per 24 hrs cholecalciferol (vitamin D3) [Vitamin D3] 50 mcg (2,000 unit) Capsule 50 mcg PO DAILY fesoterodine [Toviaz] 8 mg Tablet Extended Release 24 Hr 8 mg PO DAILY cetirizine 10 mg Capsule 10 mg PO QHS Nurtec ODT 75 mg Tablet,Disintegrating 75 mg PO PRN PRN (Reason: Migraine Headache) morphine (PF) in 0.9 % sod chl See Rx Instructions .ROUTE .COMPLEX Rx Instructions: PATIENT HAS CONT MORPHINE PAIN PUMP 263 MCG Q24 HOURS/NEEDS FOLLOW UP ON ARRIVAL Referrals / Follow Up: Kacie Smiley [employer] AND SADDLE REPAIR PERSON, [employer] SADDLE REPAIR PERSON-C [Primary Care Provider] - Disposition Disposition (needs filled in before D/C Order can be placed): Home, Self Care
--- NOTE | 2022-07-13 10:25 | RAD_ITS ---
STUDY: X-RAY - PELVIS REASON FOR EXAM: Female, 46 years old. AXONICS STAGE 1 TECHNIQUE: 2 limited fluoroscopic images, 22.7 seconds of fluoroscopy, dose of 11.83mGy COMPARISON: None. FINDINGS: 2 limited fluoroscopy images were obtained during bladder stimulator catheter placement. No intraoperative convocations noted RAD/Pelvis 1 or 2 Views IMPRESSION: No intraoperative complications noted during bladder stimulator catheter placement Electronically Signed: Bruce Whaley MD at 13:26 EDT ,
[2022-07-13] MEDS: Lactated Ringers 1,000 ML 15 ML IV (11:02)
[2022-07-13] MEDS: Lidocaine 1% /Epi 1:100 (50ml) 50 ML VIAL (12:17)
== END 2022-07-13 13:44 | disposition home or self-care (01) ==
LOC: SDC 10:09 → AC 10:10
PROVIDERS: PCP Nurse Practitioner Adult Health; Referring Provider Urology; Visit Provider Urology
PROC: (CPT 64581; principal; 2022-07-13 11:15)
DX: R35.0 Frequency of micturition (principal); N39.41 Urge incontinence; F41.9 Anxiety disorder, unspecified; J45.909 Unspecified asthma, uncomplicated; F32.9 Major depressive disorder, single episode, unspecified; K21.9 Gastro-esophageal reflux disease without esophagitis; E61.1 Iron deficiency; Z97.8 Presence of other specified devices; F17.200 Nicotine dependence, unspecified, uncomplicated; N39.44 Nocturnal enuresis; R35.1 Nocturia
CPT/HCPCS: 64581; 00630; 72170; 76000; J7040; J7120; J2405

== ENCOUNTER 2022-07-27 08:21 | Day surgery (SDC) | payer MEDICARE, MEDICAID, SELFPAY ==
[2022-07-27] VITALS (8 sets, daily range): BP systolic 97–122; BP diastolic 65–88; PULSE 72–84; RESP 16–18; TEMP 36.6–36.9; O2SAT 92–94; BMI 34.3
[2022-07-27 09:03] LABS: Hematocrit 34.5 % (37-47); Hemoglobin 11.4 g/dL (12.0-15.0); Mean Corpuscular Hgb 33.2 pg (27.0-32.0); Mean Corpuscular Volume 100.6 fL (81-99); Mean Platelet Vol. 8.6 fl (6.2-12.0); Platelet Count 199 K/mm3 (150-450); RBC Distribution Width CV 13.5 % (11.6-14.6); RBC Distribution Width SD 49.8 fl (35.1-43.9); Red Blood Count 3.43 M/mm3 (4.2-5.4); White Blood Count 5.7 K/mm3 (4.4-11.0)
[2022-07-27] MEDS: Lactated Ringers 1,000 ML 15 ML IV (09:03)
[2022-07-27 09:41] LABS: ALB/GLOB Ratio 1.2 RATIO (0.9-2.4); AST(SGOT) 16 U/L (15-37); Alanine Aminotransfer ALT/SGPT 35 U/L (13-56); Alkaline Phosphatase 53 U/L (45-117); Anion Gap 7 (5-15); BUN 13 mg/dL (7-18); BUN/Creat Ratio 24.5 RATIO (10-20); Calcium,Total 8.7 mg/dL (8.5-10.1); Chloride 113 mmol/L (98-107); Cholesterol 115 mg/dL (200); Creatinine, Serum 0.53 mg/dL (0.55-1.02); EST Glomerular Filtration Rate 132 mL/min (>60); Est Glom Filt Rate - Afr Amer 159 mL/min (>60); Estimated Creatinine Clearance 114.53 ml/min; Globulin 3.3 g/dL (2.2-4.2); Glucose 84 mg/dL (74-106); High Density Lipoprotein 42 mg/dL; Potassium 3.9 mmol/L (3.5-5.1); Protein, Total 7.3 g/dL (6.4-8.2); Sodium Level 142 mmol/L (136-145); Thyroid Stim Hormone (TSH) 0.85 uIU/mL (0.358-3.74); Triglycerides 132 mg/dL; Very Low Density Lipoprotein 26 mg/dL (5-40)
--- NOTE | 2022-07-27 10:06 | EX.PCM.DISCH ---
Discharge Instructions Diet Discharge Diet: No restrictions Activity Discharge Activity: Return to Normal Activity and May Shower (tomorrow) May resume sexual activity in: 2 weeks Dressing / Incision Call your doctor if your incision/area has: Continuous Slow Oozing, Sudden Increased Bleeding, Increased Pain/ Swelling, Increased Redness, Foul Smelling Discharge and Swelling at the incision site Call your doctor if you observe: Fever of 101 or Higher, Inability to urinate and Inability to have a bowel movement Suture Line Care: Avoid Pulling/Pushing and Avoid Pinching/Bending Change Dressing in: leave in place till F/U (leave skin glue on until it falls off.) Follow Up Care Please Follow Up With: Jerrica Liriano MD When: 3-4 weeks in the office, call for appt Test Results: Test results from this visit will be discussed in further detail at your follow-up appointment, if applicable. Discharge Plan Admission Attending Provider: Jerrica Liriano Primary Care Provider: Kacie Smiley [employer]PRESENT[employer]IVE [employer] Discharge Orders/Prescriptions Prescriptions: New oxycodone-acetaminophen [Percocet] 5-325 mg tablet 1 tab PO Q8H 3 Days Qty: 9 0RF cephalexin [cephalexin] 500 mg capsule 500 mg PO Q12 3 Days Qty: 6 0RF Continued baclofen 10 MG tablet 10 mg PO 4X/DAY acetaminophen [Tylenol] 325 MG tablet 1,000 mg PO TID gabapentin 400 MG capsule 800 mg PO TID omeprazole 40 MG capsule,delayed release(DR/EC) 40 mg PO DAILY levetiracetam 1,000 MG tablet 1,000 mg PO Q12H lacosamide [Vimpat] 50 MG tablet 100 mg PO BID ferrous sulfate 325 MG tablet 325 mg PO DAILY venlafaxine 37.5 MG capsule,extended release 24hr 37.5 mg PO DAILY atorvastatin 10 MG tablet 10 mg PO QHS ibuprofen 800 MG tablet 800 mg PO BID PRN PRN (Reason: Pain 1-10 Or Fever) hydroxyzine pamoate 50 MG capsule 50 mg PO TID PRN PRN (Reason: Anxiety) albuterol sulfate [ProAir HFA] 90 mcg/actuation Hfa Aerosol Inhaler 2 puff INHALATION Q4H PRN (Reason: sob) lactulose 10 gram/15 mL Solution 10 g PO DAILY PRN (Reason: Constipation) sennosides-docusate sodium [Senna-S] 8.6-50 mg Tablet 2 tab-cap PO DAILY venlafaxine 75 mg Tablet 75 mg PO QHS sumatriptan succinate 50 mg Tablet 50 mg PO Q2H PRN (Reason: Migraine Headache) Rx Instructions: do not exceed 4 doses per 24 hrs cholecalciferol (vitamin D3) [Vitamin D3] 50 mcg (2,000 unit) Capsule 50 mcg PO DAILY fesoterodine [Toviaz] 8 mg Tablet Extended Release 24 Hr 8 mg PO DAILY cetirizine 10 mg Capsule 10 mg PO QHS Nurtec ODT 75 mg Tablet,Disintegrating 75 mg PO PRN PRN (Reason: Migraine Headache) morphine (PF) in 0.9 % sod chl See Rx Instructions .ROUTE .COMPLEX Rx Instructions: PATIENT HAS CONT MORPHINE PAIN PUMP 263 MCG Q24 HOURS/NEEDS FOLLOW UP ON ARRIVAL oxycodone-acetaminophen [Percocet] 5-325 mg tablet 1 tab PO Q8H 3 Days Qty: 9 0RF ciprofloxacin HCl [Cipro] 500 mg Tablet 500 mg PO BID Referrals / Follow Up: Kacie Smiley [employer]PRESENTATIVE [employer]UC[employer]ES, [employer]ES REPRESENTATIVE [employer]UCATION [employer]RSES-C [Primary Care Provider] - Disposition Disposition (needs filled in before D/C Order can be placed): Home, Self Care
--- NOTE | 2022-07-27 10:10 | PCM.OPRPT ---
Report of Operation Date of Procedure: 07/27/22 Pre-Operative Diagnosis: Urge incontinence, nocturia, frequency of urination Post-Operative Diagnosis: Same Surgery/Procedure Performed:: Axonics stage II Surgeon: Jerrica Liriano Type of Anesthesia: MAC Estimated Blood Loss (mL): 5 cc Description of Procedure: The patient is a 46-year-old female with a successful stage I Axonics procedure now presenting for stage II implantation of the battery. Informed consent was obtained. The patient was taken to the operating room and placed in a prone position on the operating room table. She was appropriately padded and secured to the table. Anesthesia monitored the head, neck, airway, IV access and vital signs throughout the case. Once anesthesia was appropriately administered, the patient was prepped and draped in usual sterile fashion. The existing incision at the pocket site was infiltrated with local anesthetic. It was opened using a knife and hemostat. The lead extension was isolated and the lead was removed using the torque wrench. The lead extension was then cut and pulled from the operative field. The pocket site was enlarged using Bovie cautery and blunt dissection. Hemostasis was obtained and the pocket was irrigated. The lead was dried and inserted into the battery and secured using the torque wrench. The battery was then placed into the pocket site which was closed in 2 layers using 3-0 interrupted Vicryl followed by 4-0 Monocryl subcuticular suture. Skin glue was then applied to the incision. The patient was awakened and taken to the recovery room in good condition. There were no complications during this procedure. Grafts/Implants Used: Axonics battery Complications None Admit VTE Documentation VTE Present on Admission: No VTE Mechan Device Prophylaxis: None VTE Pharm Prophylaxis ordered?: No Reason prophylaxis not ordered:: Treatment Not Indicated
[2022-07-27] MEDS: Lidocaine 1% /Epi 1:100 (50ml) 50 ML VIAL (10:37)
[2022-07-29 14:19] LABS: KEPPRA (LEVETIRACETAM) 47.6 ug/mL (10.0-40.0)
== END 2022-07-27 12:07 | disposition home or self-care (01) ==
LOC: SDC 08:22 → AC 08:24
PROVIDERS: PCP Nurse Practitioner Adult Health; Referring Provider Urology; Visit Provider Urology
PROC: (CPT 64590; principal; 2022-07-27 09:45)
DX: N39.41 Urge incontinence (principal); G40.909 Epilepsy, unspecified, not intractable, without status epilepticus; R35.0 Frequency of micturition; F41.9 Anxiety disorder, unspecified; J45.909 Unspecified asthma, uncomplicated; K21.9 Gastro-esophageal reflux disease without esophagitis; F32.A Depression, unspecified; Z97.8 Presence of other specified devices; R35.1 Nocturia; N39.44 Nocturnal enuresis; Z79.899 Other long term (current) drug therapy
CPT/HCPCS: 64590; 00300; 80053; 80061; 80177; 84443; 85027; J7040; J7120; J2405

== ENCOUNTER → 2023-07-31 | Outpatient (CLI) | payer MEDICARE, MEDICAID, SELFPAY ==
[2023-07-31 13:04] LABS: Vitamin B12 290 pg/mL (211-911)
[2023-07-31 13:09] LABS: Ferritin 197 ng/mL (8-252)
== END | disposition home or self-care (01) ==
PROVIDERS: PCP Nurse Practitioner Adult Health; Referring Provider Family Medicine; Visit Provider Family Medicine
DX: D50.9 Iron deficiency anemia, unspecified (principal)
CPT/HCPCS: 36415; 82607; 82728

== ENCOUNTER 2023-09-17 09:28 | Outpatient (RCR) | payer MEDICARE, MEDICAID, SELFPAY ==
--- NOTE | 2023-09-17 11:11 | HP.PTEVAL ---
Patient's Visit Information Visit Information Visit Information: LENIN ANDERSON is a 47 year old F referred to Physical Therapy by Carrington Hernandez MD with a diagnosis of Spasticity. Date of Evaluation: 09/17/23 Physical Therapist: Ro Alonso DPT Visit Plan Frequency: 1x/Week Duration: 1 Week Plan: Obtain a new w/c Subjective Subjective: Patient reports that she is here for a w/c evaluation as she has had this chair for 5 years in September. She lives alone in an apartment- in a single story with no stairs to enter. She uses her wheelchair inside her home. She is completely dependent on her wheelchair. She wakes up in the morning and transfers herself directly into her wheelchair- she uses a bar on the wall and stand pivots into the wheelchair- she uses it to get into the bathroom. She stand pivot transfers to the toilet- she has a raised toilet seat with handles. She is incontient- she wears diapers. She has not had any sores- she is very diligent about changing positions. Her right side is very weak so she uses her left. She has a life alert button. Her last fall was 6 months ago. She is fully I with all ADL's- she can she has a shower chair/bench and hand held shower. She does her own cooking and cleaning in the chair. She gets precooked meal- microwave. The grocery store is 1/2 mile from her and she goes in the chair. She lives in her wheelchair. She is not able to go when their is snow on the ground. She sleeps in a regular bed with a rail that she can use to help move herself around. She does not drive. She uses [employer] or a transport service to get to her medical appts in her wheelchair. She has pain in the left side of her skull 6/10 all the time, but she just deals with it. But its the right side that does not work. CVA was 10 years ago. She wears an AFO on the right. PMHx:/Meds: see list in chart. Objective Objective: Posture: forward head, rounded shoulders, increased kyphosis- can correct with verbal cues but does not maintain throughout evaluation. Gait: pt is unable to ambulate a functional distance Transfer: pt can stand pivot independently with a hemiwalker from her w/c to a mat table Balance: Standing Static: fair Standing Dynamic: fair minus, Sitting Static/Dynamic: good ROM: Cervical: WNL, Left UE: WNL in all planes of the shoulder/elbow/wrist/fingers. Pt has no functional active use of her right UE. Right: wrist/fingers: contracture into a balled fist- elbow: AROM: unable PROM: full, Shoulder: AROM: none PROM: Flexion: 90 degrees, ABD: 90 degrees. LE: Left: WFL in all planes Right: contracture of the ankle- inverted and DF to 10 degrees from neutral Tone: increased spasticity of the right UE and LE Strength: Right: no functional strength noted Left: Scap: fair plus, elbow: 5/5, Wrist: 5/5, Device Processing Engineer: 100, Core: fair, LE: Right: Hip: 4/5 throughout, Knee: 4-/5 Ankle: 2/5 in available range, Left: 5/5 throughout hip/knee/ankle Flex: HS: severe, Gastroc: severe Goals Goal 1:: Obtain a new w/c Rehabilitation Potential Physical Therapy Diagnosis: Patient has decreased LE strength, flex, proprioception and muscular endurance leading to inability to ambulate and decreased safety with transfers and ADL's increasing her need to a w/c Rehabilitation Potential: Good Anticipated Interventions Text: Thank you for the opportunity to evaluate your patient. For Medicare and Medicare HMO plans, please review the plan of care and approve it. It will need to be FAXED BACK to us at [phone] for Medicare purposes. For Medicare only, by signing this I certify the plan of care. Please let me know if there are questions or concerns regarding this plan of care. Physician Signature: Date:
--- NOTE | 2023-12-06 15:51 | HP.PT.NRP ---
Patient Information Patient Information: LENIN ANDERSON was seen in my office for initial evaluation on 09/17/23. The following Plan of Care was established for this patient: POC Established Initial Frequency: 1x/Week Initial Duration: 1 Week Last Seen Last Seen: This patient was last seen in our office . Pertinent comments regarding their Physical therapy will appear below: Patient here for w.c eval- d/c At this point I will be discontinuing this patient from physical therapy. I would be happy to see this patient again in the future if found appropriate by the physician. Thank you! Ro Alonso, [email or web address]
== END 2023-09-17 19:00 | disposition home or self-care (01) ==
LOC: PT 09:28
PROVIDERS: PCP Nurse Practitioner Adult Health; Referring Provider Family Medicine; Visit Provider Family Medicine
DX: I69.398 Other sequelae of cerebral infarction (principal); R25.2 Cramp and spasm
CPT/HCPCS: 97162

== ENCOUNTER 2023-09-24 20:38 | Observation (INO) | payer MEDICARE, MEDICAID, SELFPAY ==
[2023-09-24] VITALS (8 sets, daily range): BP systolic 103–141; BP diastolic 72–90; PULSE 78–97; RESP 13–21; TEMP 36.1–37.2; O2SAT 90–95; BMI 36.0; BMI 39.3
--- NOTE | 2023-09-24 20:42 | CT_ITS ---
INDICATION: Neuro deficit, acute, stroke suspected EXAMINATION: CT BRAIN - CT Head Stroke Protocol W/O Contrast Injection TECHNIQUE: Multiple axial images were obtained of the head without intravenous contrast. A radiation dose optimization technique was used for this scan. IV Contrast dosage and agent: None. COMPARISON: January 28, 2020 FINDINGS: BRAIN PARENCHYMA: No intra- or extra-axial hemorrhage. No evidence of acute infarct. Unchanged left occipital and left frontoparietal temporal encephalomalacia. Redemonstration of left frontoparietal craniotomy with hyperdense dural thickening, unchanged from January 28, 2020, inappropriately labeled as hemorrhage by AI. No intracranial mass or mass effect. Unremarkable white matter for age. There is preservation of the cohen/white matter interface. Posterior fossa structures are unremarkable. CSF SPACES: Ex vacuo dilatation of the left lateral ventricle. No hydrocephalus. Cerebral volume appropriate for age. Basal cisterns are patent. CALVARIUM, SKULL BASE, PARANASAL SINUSES AND MASTOID AIR CELLS: Left nares metallic piercing. No acute osseous finding. Mild scattered paransal sinus mucoperisteal thickening. Mastoid air cells are clear. ORBITS: Both globes, extraocular muscles, optic nerves and retrobulbar fat appear unremarkable. ASPECTS Score for Acute Strokes: 10 CT/STROKE Brain/Head without Cont IMPRESSION: No CT evidence of acute intracranial hemorrhage or injury. Left craniotomy changes and encephalomalacia are unchanged from prior exam. N.B. : The above Results were Read Back by Jason Sawyer MD to Estiven Martinez MD, and understanding confirmed on 09/24/2023 21:24:35 (ET). Electronically Signed: Jason Sawyer MD at 21:20 EDT ,
--- NOTE | 2023-09-24 20:42 | EKG12_ITS ---
Test Reason : STROKE Blood Pressure : / mmHG Vent. Rate : 097 BPM Atrial Rate : 097 BPM P-R Int : 160 ms QRS Dur : 076 ms QT Int : 398 ms P-R-T Axes : 031 021 049 degrees QTc Int : 505 ms Normal sinus rhythm Normal ECG Confirmed by HENRI ADAMS, BEVERLEY ([id number]), editorial cartoonist JAZZ NAVA ([id number]) on 09/27/2023 6:18:55 AM Referred By: Confirmed By:HENRY ÁLVAREZ MD
--- NOTE | 2023-09-24 20:43 | CT_ITS ---
INDICATION: Neuro deficit, acute, stroke suspected EXAMINATION: CTA CAROTIDS AND BRAIN - CTA Head and Neck Stroke W/ Contrast (and W/O if performed) TECHNIQUE: Routine CTA of the head and neck was performed with post processing of the angiographic images for volumetric reconstructions. In addition, images were obtained of the [place]. [place] criteria using the distal ICAs for comparison were used for evaluation of stenoses. 3D reconstructions were reviewed. A radiation dose optimization technique was used for this scan. IV Contrast dosage and agent: 100 mL [id number] COMPARISON: None. FINDINGS: --NECK: AORTIC ARCH AND BRANCHES: Normal anatomy, patent. RIGHT CCA: No occlusion, significant stenosis or dissection. RIGHT ICA: No occlusion, significant stenosis or dissection. LEFT CCA: No occlusion, significant stenosis or dissection. LEFT ICA: No occlusion, significant stenosis or dissection. RIGHT VERTEBRAL ARTERY: No occlusion, significant stenosis or dissection. LEFT VERTEBRAL ARTERY: No occlusion, significant stenosis or dissection. NECK SOFT TISSUES: Unremarkable. LUNG APICES: Clear. BONES: Scattered mild paranasal sinus mucoperiosteal thickening.. --HEAD: Prior left sided encephalomalacia and craniotomy change better assessed on CT head --Anterior circulation: ICAs: No significant stenosis at the intracranial/visualized segments. ACAs: No significant stenosis at the visualized segments. ACOM: Present. MCAs: No significant stenosis at the visualized segments. --Posterior circulation: PCOMs: Not seen inseminator: No significant stenosis at the visualized segments. BASILAR ARTERY: No significant stenosis. VERTEBRAL ARTERIES: No significant stenosis at the intradural/visualized segments. No evidence of intracranial aneurysm or vascular malformation. CT/STROKE CTA Head AND Neck W/Con IMPRESSION: No CT evidence of cervical or proximal intracranial vascular occlusion or focal flow-limiting stenosis. Mild scattered sinus disease. N.B. : The above Results were Read Back by Jason Sawyer MD to Estiven Martinez MD, and understanding confirmed on 09/24/2023 21:30:49 (ET). Electronically Signed: Jason Sawyer MD at 21:27 EDT ,
--- NOTE | 2023-09-24 21:05 | ED.VIS.STROK ---
HPI History of Present Illness Chief Complaint: Stroke Alert Narrative Narrative: 47-year-old female past medical history of prior brain bleeds with right upper extremity and lower extremity deficits presents via EMS with slurred speech and mental status change. It was reported by EMS that she is in independent living currently. They were called to the scene because of a fall from the toilet. Staff had gotten her up prior to their arrival. They note that patient has slurred speech and garbled speech and is not making sense. As she is in independent living, last known well time is unknown. EMS states that they spoke with her father, and patient had voluntarily reentered independent living, but started drinking alcohol again. Prehospital stroke team was initiated by EMS because of the garbled speech, and right-sided weakness mainly of the right upper extremity. They state that this is not like her as she has intermittently following commands. They state that she does have history of 2 prior intracranial hemorrhages. [facility] Medical History (Updated 09/24/23 @ 22:03 by Estiven Martinez MD) Substance abuse Alcohol abuse Urge incontinence Presence of intrathecal baclofen pump Living in assisted living Wears dentures Uses wheelchair Vapes nicotine containing substance Asthma Depression Anxiety High cholesterol Low iron Injury of head and neck TBI (traumatic brain injury) Migraine headache Seizures Gastric reflux Shortness of breath on exertion Home Medications ?Medication ?Instructions ?Recorded ?Last Taken ?Type acetaminophen 325 mg tablet 1,000 mg PO TID pain 02/07/18 07/13/22 History (Tylenol) baclofen 10 mg tablet 10 mg PO 4X/DAY spasticity 02/07/18 07/13/22 History gabapentin 400 mg capsule 800 mg PO TID pain 02/07/18 07/13/22 History lacosamide 50 mg tablet (Vimpat) 100 mg PO BID seizures 02/07/18 Unknown History levetiracetam 1,000 mg tablet 1,000 mg PO Q12H seizures 02/07/18 07/13/22 History omeprazole 40 mg capsule,delayed 40 mg PO DAILY GERD 02/07/18 Unknown History release ferrous sulfate 325 mg (65 mg 325 mg PO DAILY supplement 01/31/19 Unknown History iron) tablet atorvastatin 10 mg tablet 10 mg PO QHS cholesterol 02/27/20 Unknown History hydroxyzine pamoate 50 mg capsule 50 mg PO TID PRN PRN Anxiety 02/27/20 Unknown History venlafaxine 37.5 mg 37.5 mg PO DAILY mood 02/27/20 07/13/22 History capsule,extended release 24 hr albuterol sulfate 90 mcg/actuation 2 puff inhalation Q4H PRN sob 01/06/21 Unknown History aerosol inhaler (ProAir HFA) lactulose 10 gram/15 mL oral 10 g PO DAILY PRN Constipation 01/06/21 Unknown History solution sennosides 8.6 mg-docusate sodium 2 tab-cap PO DAILY stool softener 01/06/21 Unknown History 50 mg tablet (Senna-S) cholecalciferol (vitamin D3) 50 50 mcg PO DAILY 06/27/22 Unknown History mcg (2,000 unit) capsule (Vitamin D3) fesoterodine 8 mg tablet,extended 8 mg PO DAILY 06/27/22 07/13/22 History release 24 hr (Toviaz) rimegepant 75 mg disintegrating 75 mg PO PRN PRN Migraine Headache 06/27/22 Unknown History tablet (Nurtec ODT) venlafaxine 75 mg tablet 75 mg PO QHS 06/27/22 Unknown History morphine (PF) in 0.9 % sod chl See Rx Instructions .Route .COMPLEX 06/29/22 Unknown History Allergy/AdvReac Type Severity Reaction Status Date / Time bee venom protein (honey bee) Allergy Other Verified 07/27/22 08:58 Penicillins Allergy Unknown Verified 07/27/22 08:58 Surgical History Hx of bladder repair surgery History of carpal tunnel repair History of tubal ligation History of brain surgery Social History Smoking Status: Current every day smoker tobacco type: e-cigarettes ROS ROS ED ROS Narrative Limited secondary to patient condition. Patient denies any symptoms. Constitutional: No fever, no chills. HEENT: No sore throat. No neck pain. No loss of vision. No rhinorrhea. Cardiovascular: No chest pain. No palpitations. No pedal edema. Respiratory: No cough, no shortness of breath. Abdominal: No abdominal pain. No nausea. No vomiting. Genitourinary: No dysuria. No hematuria. Musculoskeletal: No myalgias. No arthralgias. Neurologic: No headaches. No dizziness. No lightheadedness. Skin: No rash. No change in color. Psychiatric: No depression. No anxiety. EXAM Physical Exam Narrative Exam Narrative: Afebrile. Vital signs noted. GCS 15. ABCs intact. HEENT: Normocephalic. Positive periorbital bruising, right PERRL, EOMI. Neck soft and supple. No point tenderness or step off. Cardiovascular: Regular rate and rhythm. No murmurs, rubs, or gallops appreciated. Respiratory: No tachypnea. Lungs clear to auscultation bilaterally. Gastrointestinal: Abdomen soft, nontender, with normoactive bowel sounds. No rebound or guarding. Neurological: Awake. Alert. Right upper extremity weakness. Unable to lift arm from bed independently, right. Intermittently following commands. Positive slurred speech/dysarthria with garbled speech. Right lower extremity weakness. Skin: No rash. Normal color. No pallor. Musculoskeletal: No pedal edema. Const Vital Signs: 09/24/23 20:39 09/24/23 21:12 09/24/23 21:23 Temperature 97 F L 98.9 F Temperature Source Temporal Oral Pulse Rate 97 Respiratory Rate 16 Blood Pressure 121/72 H Blood Pressure Mean 88 Pulse Ox 90 92 Oxygen Delivery Method Room Air Room Air 09/24/23 21:30 09/24/23 21:39 09/24/23 22:00 Temperature 98.8 F Temperature Source Oral Pulse Rate 97 94 78 Respiratory Rate 21 H 16 13 Blood Pressure 133/83 H 124/74 H 141/87 H Blood Pressure Mean 99 90 105 Pulse Ox 91 91 95 Oxygen Delivery Method Room Air Room Air Room Air 09/24/23 22:29 Temperature 98.7 F Temperature Source Pulse Rate 94 Respiratory Rate 15 Blood Pressure 118/78 Blood Pressure Mean 91 Pulse Ox 92 Oxygen Delivery Method MDM MDM MDM Narrative Medical decision making narrative: Although the patient has an unknown last well-known time, it is most likely in the last 24 hours. EMS had requested prehospital stroke team. Patient was very combative and required Ativan 1 mg intravenously to obtain the CT of the brain and the CTA. EKG was obtained and interpreted by myself independently as normal sinus rhythm at 97 bpm without ectopy or acute ST changes. No STEMI. I reviewed her laboratory work and she has normal white count of 8.2, hemoglobin 12.0, HCT T is 38.4 with platelet count normal at 253. INR is normal at 0.9 with a PTT of 25.5, and review of her electrolyte panel shows hypernatremia of 147 with chloride elevated at 116, BUN of 11 and creatinine 0.61. High-sensitivity troponin is 5. Of significance is for ethyl alcohol level which is elevated at 237. I received a call from the radiologist and the CT of the brain shows no significant change, no subdural, no active hemorrhage when compared to imaging from 2019. Additionally, I discussed with him the CTA which is negative for acute process. I discussed the patient with neurology at [facility], who states that since the CT and CTA showed no acute process, that she can stay locally. Her father is now at the bedside who states that she usually has a mild aphasia, but is worsened. I do feel that her acute alcohol intoxication has something to do with her worsening slurred speech. At this point in time, I discussed patient with Dr. Mehran Rosenthal for observation on PCU. Patient is in stable condition. History & Record Review Discussion w/independent historian: Family (Father) Lab Data Attestation: I reviewed the patient's lab results. Labs: Laboratory Results - last 24 hr 09/24/23 20:56 WBC 8.2 RBC 3.86 L Hgb 12.0 Hct 38.4 MCV 99.5 H MCH 31.1 MCHC 31.3 L RDW Std Deviation 50.0 H RDW Coeff of Velma 13.9 Plt Count 253 MPV 9.1 Immature Gran % (Auto) 1.000 H Neut % (Auto) 65.3 Lymph % (Auto) 25.4 [place] % (Auto) 6.1 Eos % (Auto) 2.0 Baso % (Auto) 0.2 Absolute Neuts (auto) 5.4 Absolute Lymphs (auto) 2.08 Nucleated RBC % 0 PT 11.7 INR 0.9 APTT 25.5 Sodium 147 H Potassium 3.8 Chloride 116 H Carbon Dioxide 23.0 Anion Gap 8 BUN 11 Creatinine 0.61 Est GFR (MDRD) Af Amer 134 Est GFR (MDRD) Non-Af 111 BUN/Creatinine Ratio 17.9 Glucose 100 Calcium 9.0 Troponin I High Sens 5 Ethyl Alcohol 237.0 Radiography Diagnostic Testing: Clinical Impression(s) from Imaging Studies Brain CT 09/24/23 20:42 IMPRESSION: No CT evidence of acute intracranial hemorrhage or injury. Left craniotomy changes and encephalomalacia are unchanged from prior exam. N.B. : The above Results were Read Back by Jason Sawyer MD to Estiven Martinez MD, and understanding confirmed on 09/24/2023 21:24:35 (ET). Electronically Signed: Jason Sawyer MD at 21:20 EDT , Head/Neck CTA 09/24/23 20:43 IMPRESSION: No CT evidence of cervical or proximal intracranial vascular occlusion or focal flow-limiting stenosis. Mild scattered sinus disease. N.B. : The above Results were Read Back by Jason Sawyer MD to Estiven Martinez MD, and understanding confirmed on 09/24/2023 21:30:49 (ET). Electronically Signed: Jason Sawyer MD at 21:27 EDT , Chest X-Ray 09/24/23 22:00 IMPRESSION: Low lung volumes with mild interstitial crowding. Cannot exclude mild superimposed interstitial edema or bronchitis/bronchiolitis. Electronically Signed: Jason Sawyer MD at 22:43 EDT , Management Discussion w/another healthcare provider: Hospitalist Discharge Plan Dx/Rx/DC Orders Clinical Impression: Fall, Facial contusion, Acute alcohol intoxication, Slurring of speech, Hypernatremia Disposition Disposition: Acute Care Hospital [facility] Discharge Date/Time: 09/24/23 23:00
--- NOTE | 2023-09-24 21:07 | ED.RN ---
Delay in care related to pt being combative and unable to obtain scans.
[2023-09-24 21:13] LABS: Absolute Lymphocyte Count 2.08 X10^3/uL (0.83-4.51); Absolute Neutrophil Count 5.4 X10^3/uL (2.0-7.7); Basophil# 0.02 X10^3/uL; Basophil% 0.2 % (0-1); Eosinophil# 0.16 X10^3/uL; Hematocrit 38.4 % (37-47); Lymphocyte # 2.08 X10^3/ul (0.83-4.51); Lymphocyte % 25.4 % (19-41); Mean Corp Hgb Conc 31.3 g/dL (32-36); Mean Corpuscular Hgb 31.1 pg (27.0-32.0); Mean Corpuscular Volume 99.5 fL (81-99); Mean Platelet Vol. 9.1 fl (6.2-12.0); Monocyte% 6.1 % (0-10); NRBC Flagged by Analyzer 0 % (0-5); Neutrophil # 5.36 X10^3/uL (2.7-7.7); Neutrophil % 65.3 % (47-70); Platelet Count 253 K/mm3 (150-450); RBC Distribution Width CV 13.9 % (11.6-14.6); Red Blood Count 3.86 M/mm3 (4.2-5.4); White Blood Count 8.2 K/mm3 (4.4-11.0)
[2023-09-24 21:18] LABS: International Normalized Ratio 0.9; Prothrombin Time (Protime)PT. 11.7 SECONDS (11.7-14.9)
[2023-09-24 21:19] LABS: Partial Thromboplast Time 25.5 Seconds (24.1-36.2)
[2023-09-24 21:30] LABS: Anion Gap 8 (5-15); BUN 11 mg/dL (7-18); BUN/Creat Ratio 17.9 RATIO (10-20); Chloride 116 mmol/L (98-107); Creatinine, Serum 0.61 mg/dL (0.55-1.02); EST Glomerular Filtration Rate 111 mL/min (>60); Est Glom Filt Rate - Afr Amer 134 mL/min (>60); Glucose 100 mg/dL (74-106); Potassium 3.8 mmol/L (3.5-5.1); Sodium Level 147 mmol/L (136-145); Troponin-I HS 5 pg/mL (3.0-54.0)
--- NOTE | 2023-09-24 22:00 | RAD_ITS ---
INDICATION: Neuro deficit, acute, stroke suspected EXAMINATION/TECHNIQUE: X-RAY - XR Chest 1 View COMPARISON: None. FINDINGS: LINES/DEVICES: None. LUNGS: Symmetric low lung volumes. Mild bilateral peribronchial thickening. No consolidation or effusion. No pneumothorax. MEDIASTINUM AND CARDIOVASCULAR STRUCTURES: Cardiac silhouette not enlarged. BONES AND SOFT TISSUES: Unremarkable. RAD/Chest 1 View IMPRESSION: Low lung volumes with mild interstitial crowding. Cannot exclude mild superimposed interstitial edema or bronchitis/bronchiolitis. Electronically Signed: Jason Sawyer MD at 22:43 EDT ,
--- NOTE | 2023-09-24 22:12 | ED.RN ---
Per Dr. Martinez[facility]
--- NOTE | 2023-09-24 22:27 | HP.PCM_ITS ---
HPI - General General Date of Admission: 09/24/23 Date of Service: 09/24/23 Chief Complaint: Fall with injury, alcohol intoxication HPI Narrative LENIN ANDERSON, is a 47 F who presents to the emergency room by squad secondary to a fall at home on the toilet. Patient has significant past medical history of stroke and is living independently currently however she is wheelchair-bound and has right upper extremity weakness as residual effect from previous stroke. Apparently she has restarted alcohol abuse and was significantly intoxicated this evening during her fall. Initial CT scans are negative for intracranial hemorrhage or acute injury. She does have garbled speech and is agitated at present time and is a poor historian. No new neurologic deficits are discovered upon examination from her baseline at this time. Patient will be admitted to the progressive care unit for neurologic monitoring given her history and alcohol intoxication. Patient will need case management to help with discharge planning as it is clear she is not capable of caring for herself adequately at independent living. [facility] Medical History (Updated 09/24/23 @ 22:03 by Estiven Martinez MD) Substance abuse Alcohol abuse Urge incontinence Presence of intrathecal baclofen pump Living in assisted living Wears dentures Uses wheelchair Vapes nicotine containing substance Asthma Depression Anxiety High cholesterol Low iron Injury of head and neck TBI (traumatic brain injury) Migraine headache Seizures Gastric reflux Shortness of breath on exertion Home Medications ?Medication ?Instructions ?Recorded ?Last Taken ?Type acetaminophen 325 mg tablet 1,000 mg PO TID pain 02/07/18 07/13/22 History (Tylenol) baclofen 10 mg tablet 10 mg PO 4X/DAY spasticity 02/07/18 07/13/22 History gabapentin 400 mg capsule 800 mg PO TID pain 02/07/18 07/13/22 History lacosamide 50 mg tablet (Vimpat) 100 mg PO BID seizures 02/07/18 Unknown History levetiracetam 1,000 mg tablet 1,000 mg PO Q12H seizures 02/07/18 07/13/22 History omeprazole 40 mg capsule,delayed 40 mg PO DAILY GERD 02/07/18 Unknown History release ferrous sulfate 325 mg (65 mg 325 mg PO DAILY supplement 01/31/19 Unknown History iron) tablet atorvastatin 10 mg tablet 10 mg PO QHS cholesterol 02/27/20 Unknown History hydroxyzine pamoate 50 mg capsule 50 mg PO TID PRN PRN Anxiety 02/27/20 Unknown History venlafaxine 37.5 mg 37.5 mg PO DAILY mood 02/27/20 07/13/22 History capsule,extended release 24 hr albuterol sulfate 90 mcg/actuation 2 puff inhalation Q4H PRN sob 01/06/21 Unknown History aerosol inhaler (ProAir HFA) lactulose 10 gram/15 mL oral 10 g PO DAILY PRN Constipation 01/06/21 Unknown History solution sennosides 8.6 mg-docusate sodium 2 tab-cap PO DAILY stool softener 01/06/21 Unknown History 50 mg tablet (Senna-S) cholecalciferol (vitamin D3) 50 50 mcg PO DAILY 06/27/22 Unknown History mcg (2,000 unit) capsule (Vitamin D3) fesoterodine 8 mg tablet,extended 8 mg PO DAILY 06/27/22 07/13/22 History release 24 hr (Toviaz) rimegepant 75 mg disintegrating 75 mg PO PRN PRN Migraine Headache 06/27/22 Unknown History tablet (Nurtec ODT) venlafaxine 75 mg tablet 75 mg PO QHS 06/27/22 Unknown History morphine (PF) in 0.9 % sod chl See Rx Instructions .Route .COMPLEX 06/29/22 Unknown History Allergy/AdvReac Type Severity Reaction Status Date / Time bee venom protein (honey bee) Allergy Other Verified 07/27/22 08:58 Penicillins Allergy Unknown Verified 07/27/22 08:58 Surgical History Hx of bladder repair surgery History of carpal tunnel repair History of tubal ligation History of brain surgery Social History Smoking Status: Current every day smoker tobacco type: e-cigarettes ROS Constitutional Constitutional: Denies chills or fever(s) Eyes Eyes: Denies blurry vision ENT HEENT: Denies abnormal hearing Cardiovascular Cardiovascular: Denies chest pain Respiratory/Chest Respiratory/Chest: Denies cough Gastrointestinal Gastrointestinal: Denies abdominal pain Genitourinary Genitourinary: Denies dysuria Musculoskeletal Musculoskeletal: Denies back pain Integumentary Integumentary: Denies jaundice Neurologic Neurologic: Reports abnormal speech and confusion Psychiatric Psychiatric: Reports anxiety Vital Signs Vital Signs Vital Signs: 09/24/23 20:39 09/24/23 21:12 09/24/23 21:23 Temperature 97 F L 98.9 F Temperature Source Temporal Oral Pulse Rate 97 Respiratory Rate 16 Blood Pressure 121/72 H Blood Pressure Mean 88 Pulse Ox 90 92 Oxygen Delivery Method Room Air Room Air 09/24/23 21:30 09/24/23 21:39 09/24/23 22:00 Temperature 98.8 F Temperature Source Oral Pulse Rate 97 94 78 Respiratory Rate 21 H 16 13 Blood Pressure 133/83 H 124/74 H 141/87 H Blood Pressure Mean 99 90 105 Pulse Ox 91 91 95 Oxygen Delivery Method Room Air Room Air Room Air Physical Exam Const alert Orientation / Consciousness: confused HEENT normocephalic and head/scalp atraumatic Eyes PERRL Neck no lymphadenopathy Lymph Lymphatic: no lymphadenopathy noted Resp normal respiratory effort, normal air movement and clear to auscultation bilaterally Cardio regular rate, regular rhythm, S1 normal heart sound and S2 normal heart sound GI normal to inspection, nondistended, normoactive bowel sounds Extremity normal capillary refill Skin General Skin Exam: no breakdown Neuro Neuro Narrative: Patient currently agitated. She is unable to bear weight with lower extremities and is permanently wheelchair-bound prior to this evening. She also has right upper extremity weakness prior to arrival this evening. Speech is garbled. Speech: speech abnormal Psych Attitude: agitated Mood & Affect: anxious Results Lab / Micro Data 09/24/23 20:56 09/24/23 20:56 Labs: Laboratory Results - last 24 hr 09/24/23 20:56: WBC 8.2, RBC 3.86 L, Hgb 12.0, Hct 38.4, MCV 99.5 H, MCH 31.1, M CHC 31.3 L, RDW Std Deviation 50.0 H, RDW Coeff of Velma 13.9, Plt Count 253, MPV 9.1, Immature Gran % (Auto) 1.000 H, Neut % (Auto) 65.3, Lymph % (Auto) 25.4, [place] % (Auto) 6.1, Eos % (Auto) 2.0, Baso % (Auto) 0.2, Absolute Neuts (auto) 5.4, Absolute Lymphs (auto) 2.08, Nucleated RBC % 0, PT 11.7, INR 0.9, APTT 25.5, Sodium 147 H, Potassium 3.8, Chloride 116 H, Carbon Dioxide 23.0, Anion Gap 8, BUN 11, Creatinine 0.61, Est GFR (MDRD) Af Amer 134, Est GFR (MDRD) Non- Af 111, BUN/Creatinine Ratio 17.9, Glucose 100, Calcium 9.0, Troponin I High Sens 5, Ethyl Alcohol 237.0 Assessment & Plan Assessment/Plan (1) Hypernatremia: (2) Slurring of speech: (3) Acute alcohol intoxication: (4) Fall: PLAN: Plan 1. Fall at home secondary to alcohol intoxication. Admit patient to progressive care unit due to history of CVA. Will initiate neurologic checks throughout this evening every 4 hours, will initiate ciwa protocol, consult complex case manager to help with discharge planning. At this time it is felt her alcohol status is the main contributor to her altered mental status. 2. DVT prophylaxis?patient is thrashing around and we will hold off on SCDs at this time 3. Hypernatremia?will hydrate with D5 half-normal saline and repeat BMP in the a.m. Charges/Coding Visit Charges OBSV E&M: 37587 Observ/hosp same date L2
[2023-09-24] MEDS: LORazepam 2 MG/ML Syringe 0.5 MG IV (23:23)
[2023-09-24] MEDS: Dext 5%-0.45% NS 1,000 ML 75 ML IV (23:36)
[2023-09-25 04:15] VITALS: BP 127/97; PULSE 78; RESP 18; TEMP 36.8; O2SAT 96
[2023-09-25 08:04] LABS: Anion Gap 6 (5-15); BUN 9 mg/dL (7-18); BUN/Creat Ratio 18.2 RATIO (10-20); Calcium,Total 8.4 mg/dL (8.5-10.1); Chloride 114 mmol/L (98-107); Creatinine, Serum 0.49 mg/dL (0.55-1.02); EST Glomerular Filtration Rate 142 mL/min (>60); Est Glom Filt Rate - Afr Amer 172 mL/min (>60); Estimated Creatinine Clearance 158.91 ml/min; Glucose 86 mg/dL (74-106); Potassium 3.4 mmol/L (3.5-5.1); Sodium Level 143 mmol/L (136-145)
[2023-09-25 10:11] VITALS: BP 128/68; PULSE 80; RESP 14; TEMP 37.1; O2SAT 100
[2023-09-25] MEDS: levETIRAcetam 1,000 MG Tablet 1000 MG PO (10:14)
[2023-09-25] MEDS: Thiamine Hydrochloride 200 MG in 0.9% Normal Saline (50mL Bag) 50 ML IV (10:31)
[2023-09-25] MEDS: Folic Acid 1 MG in 0.9% Normal Saline (50mL Bag) 50 ML 200 MG IV (10:59)
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
--- NOTE | 2023-09-25 12:51 | CASEMGMT ---
Social Work Pt does not have LW/POA, declined to complete at this time. ODILIA Taylor
--- NOTE | 2023-09-25 12:52 | CASEMGMT ---
Social Work SW spoke w/pt about her alcohol use. Pt denies that she has an issue w/alcohol use. Pt states she does not drink every day. She states she was just drinking to celebrate . Pt declined any resources or information regarding alcohol abuse. ODILIA Taylor
--- NOTE | 2023-09-25 13:30 | PHA.DC.MR.R ---
Pharmacy [place] Med Reconciliation Pharmacy Service has performed discharge medication reconciliation for this patient. The patient's discharge medication list was reviewed for discrepancies and discrepancies were resolved. Medications at Discharge Home Medications acetaminophen 325 mg tablet (Tylenol) 1,000 mg PO TID PRN pain 02/07/18 baclofen 10 mg tablet 20 mg PO 4X/DAY spasticity 02/07/18 lacosamide 50 mg tablet (Vimpat) 100 mg PO BID seizures 02/07/18 levetiracetam 1,000 mg tablet 1,000 mg PO .am seizures 02/07/18 omeprazole 40 mg capsule,delayed release 40 mg PO DAILY GERD 02/07/18 ferrous sulfate 325 mg (65 mg iron) tablet 325 mg PO DAILY supplement 01/31/19 atorvastatin 10 mg tablet 10 mg PO QHS cholesterol 02/27/20 hydroxyzine pamoate 50 mg capsule 100 mg PO Q8H Anxiety 02/27/20 venlafaxine 37.5 mg capsule,extended release 24 hr 37.5 mg PO DAILY mood 02/27/20 albuterol sulfate 90 mcg/actuation aerosol inhaler (ProAir HFA) 2 puff inhalation Q4H PRN sob 01/06/21 lactulose 10 gram/15 mL oral solution 10 g PO DAILY PRN Constipation 01/06/21 sennosides 8.6 mg-docusate sodium 50 mg tablet (Senna-S) 2 tab-cap PO DAILY stool softener 01/06/21 rimegepant 75 mg disintegrating tablet (Nurtec ODT) 75 mg PO PRN PRN Migraine Headache 06/27/22 venlafaxine 75 mg tablet 75 mg PO QHS mood 06/27/22 morphine (PF) in 0.9 % sod chl See Rx Instructions .Route .COMPLEX 06/29/22 gabapentin 800 mg tablet 1,200 mg PO BID neuropathy 09/25/23 gabapentin 800 mg tablet 800 mg PO .noon nerves 09/25/23 ibuprofen 800 mg tablet (IBU) 800 mg PO Q12H pain 09/25/23 levetiracetam 1,000 mg tablet 1,500 mg PO QHS seizures 09/25/23 vibegron 75 mg tablet (Gemtesa) 75 mg PO DAILY bladder 09/25/23
[2023-09-25 15:00] VITALS: BP 114/65; PULSE 60; RESP 14; TEMP 36.7; O2SAT 99; BMI 36.0
[2023-09-25] MEDS: Potassium Chloride Oral Tablet 20 MEQ 40 MEQ PO (15:10)
== END 2023-09-25 12:43 | disposition home or self-care (01) ==
LOC: ED 22:05 → PCU 23:05
PROVIDERS: Admitting Provider Family Medicine; Emergency Provider Emergency Medicine; PCP Nurse Practitioner Adult Health; Visit Provider Internal Medicine
DX: F10.129 Alcohol abuse with intoxication, unspecified (principal); I69.351 Hemiplegia and hemiparesis following cerebral infarction affecting right dominant side; G40.909 Epilepsy, unspecified, not intractable, without status epilepticus; E87.0 Hyperosmolality and hypernatremia; Z99.3 Dependence on wheelchair; G89.29 Other chronic pain; F41.9 Anxiety disorder, unspecified; S00.83XA Contusion of other part of head, initial encounter; E87.6 Hypokalemia; R33.9 Retention of urine, unspecified; E78.5 Hyperlipidemia, unspecified; K21.9 Gastro-esophageal reflux disease without esophagitis; W18.11XA Fall from or off toilet without subsequent striking against object, initial encounter; R47.81 Slurred speech; F17.290 Nicotine dependence, other tobacco product, uncomplicated; Z79.899 Other long term (current) drug therapy; Y90.7 Blood alcohol level of 200-239 mg/100 ml; R47.01 Aphasia
CPT/HCPCS: 36415; 70450; 70496; 70498; 71045; 80048; 80320; 84484; 85025; 85610; 85730; 93005; 96361; 96365; 96367; 96375; 99221; 99285; Q9967; A4216; G0378; G0480; J3490; J7799

== ENCOUNTER 2024-01-21 11:59 | Outpatient (RCR) | payer MEDICARE, MEDICAID, SELFPAY ==
--- NOTE | 2024-01-21 13:57 | HP.PTEVAL ---
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 Date of Evaluation: 01/21/24 Physical Therapist: Isaiah Beckman, PT, Cert MDT, OCS Visit Plan Frequency: 1 visit Plan: Patient will benefit from PMD due to severe spasticity right side,weakness ,unable to ambulate ,poor balance standing along with comorbities to influence condition . Patient unable to use manual w/c to to weakness and right UE severe spasticity . Power mobility device will significantly improve the patient ability to participate in MRADLS'. Patient will use PMD in home to maintain Independent level. Patient has mental and physical capabilities to safely operate a power w/c Thus, PMD is needed to maintain optimal level of functional [place] Subjective Subjective: This 48 y/o female presents to physical therapy with W/C evaluation. Patient is needing a new PMD over 5 years old and starting to break down . Patient has CVA affecting right side 10 years. Patient has had PT. Patient in [place] with elevator, Walk in shower with seat garb rail.Patient provides meals which meals are delivered. Dressing self . Patient has MANAGER OF PATIENT 2X week 3 hours. Patient has regular bed has elevated toilet . Meals prep at counter top level. Room is handicapped accessible. Patient has pain in head. Patient has no h/o sacral /buttuck sore. Patient is I at home with PMD. Patient uses VAN .No recent falls but has fallen 1x past 6 months. Patient aha cane but unable to use. Patient SOCIAL: lives alone Objective Objective: POSTURE : slight thoracic kyphosis ,posterior pelvic tilt NEURO: RUE/LE spasticity ,hyperreflexia UE/LE MOBILITY: PMD TRANSFERS: sit-stand with transfers to bed BED MOBILITY: mod I SITTING BALANCE: fair+ STANDING : poor + ,dynamic absent AROM: LLE WFL ,Knee flexion 0--130 degrees , RLE limited due to spasticity ,right severe spasticity poor strength ,LLE UE WNL,right ankle equinovarus deformity ankle MMT: right quads 3-/5 ,hamstrings 3-/4 ,hip flexion 0/5 ankle limited due to spasticity ,left 4/5 GAIT: non ambulatory just to do transfers Goals Goal 1:: Patient will benefit from PMD to maintain [place] Goal Time Frame: 1visit Rehabilitation Potential Physical Therapy Diagnosis: Patient will benefit from PMD due to severe spasticity right side,weakness ,unable to ambulate ,poor balance standing along with comorbities to influence condition . Patient unable to use manual w/c to to weakness and right UE severe spasticity . Power mobility device will significantly improve the patient ability to participate in MRADLS'. Patient will use PMD in home to maintain Independent level. Patient has mental and physical capabilities to safely operate a power w/c Thus, PMD is needed to maintain optimal level of functional [place] Rehabilitation Potential: Poor Anticipated Interventions Patient/Client Instruction: Educate patient on: Condition and Plan of Care Other: pmd Text: Thank you for the opportunity to evaluate your patient. For Medicare and Medicare HMO plans, please review the plan of care and approve it. It will need to be FAXED BACK to us at [phone] for Medicare purposes. For Medicare only, by signing this I certify the plan of care. Please let me know if there are questions or concerns regarding this plan of care. Physician Signature: Date:
== END 2024-01-21 19:00 | disposition home or self-care (01) ==
LOC: PT 11:59
PROVIDERS: PCP Nurse Practitioner Adult Health; Referring Provider Family Medicine; Visit Provider Family Medicine
DX: I69.998 Other sequelae following unspecified cerebrovascular disease (principal); R25.2 Cramp and spasm
CPT/HCPCS: 97163

== ENCOUNTER → 2024-05-28 | Outpatient (CLI) | payer MEDICARE, MEDICAID, SELFPAY ==
[2024-05-28 15:45] LABS: AST(SGOT) 6 U/L (15-37); Alanine Aminotransfer ALT/SGPT 19 U/L (13-56)
== END | disposition home or self-care (01) ==
LOC: LAB 14:11
PROVIDERS: PCP Nurse Practitioner Adult Health; Referring Provider Family Medicine; Visit Provider Family Medicine
DX: B35.1 Tinea unguium (principal)
CPT/HCPCS: 36415; 84450; 84460

== ENCOUNTER → 2024-06-13 | Outpatient (CLI) | payer MEDICARE, MEDICAID, SELFPAY ==
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
== END | disposition home or self-care (01) ==
LOC: CT 07:49
PROVIDERS: PCP Nurse Practitioner Adult Health; Referring Provider Family Medicine; Visit Provider Family Medicine
DX: R47.01 Aphasia (principal)
CPT/HCPCS: 70470; Q9967; A4216

== ENCOUNTER 2024-10-24 13:24 | Emergency (ER) | payer MEDICARE, MEDICAID, SELFPAY ==
[2024-10-24 13:25] VITALS: BP 123/83; PULSE 84; RESP 18; TEMP 37; O2SAT 97
--- NOTE | 2024-10-24 13:54 | ED.VIS.LOWEX ---
HPI History of Present Illness HPI Narrative: Patient presents with injury to her right foot that occurred yesterday. Patient has limited feeling in her right foot. Patient states she stepped on hot pavement and twisted her foot. Patient states that she developed a wound over the plantar aspect of her right foot over the fifth metatarsal head. Patient has been using dressings with minimal relief. Patient describes her pain as sharp. Patient states it is worse with standing. Patient states nothing makes it better. Patient denies any other injuries. Patient is unsure of her last tetanus. Chief Complaint: Lower Extremity Injury Informant: patient Onset/Context/Timing Onset: Yesterday Context: Sudden Onset Timing: Continuous Quality of Pain: Sharp Location: Right foot Worsened by: Standing Relieved by: Nothing Associated Symptoms Associated Symptoms: Negative for Parasthesia, Weakness or Loss of Funtion PFSH [facility] Medical History Fall Substance abuse Alcohol abuse Urge incontinence Presence of intrathecal baclofen pump Living in assisted living Wears dentures Uses wheelchair Vapes nicotine containing substance Asthma Depression Anxiety High cholesterol Low iron Injury of head and neck TBI (traumatic brain injury) Migraine headache Seizures Gastric reflux Shortness of breath on exertion Home Medications ?Medication ?Instructions ?Recorded ?Last Taken ?Type acetaminophen 325 mg tablet 1,000 mg PO TID PRN pain 02/07/18 07/13/22 History (Tylenol) baclofen 10 mg tablet 20 mg PO 4X/DAY spasticity 02/07/18 07/13/22 History lacosamide 50 mg tablet (Vimpat) 100 mg PO BID seizures 02/07/18 Unknown History levetiracetam 1,000 mg tablet 1,000 mg PO .am seizures 02/07/18 07/13/22 History omeprazole 40 mg capsule,delayed 40 mg PO DAILY GERD 02/07/18 Unknown History release ferrous sulfate 325 mg (65 mg 325 mg PO DAILY supplement 01/31/19 Unknown History iron) tablet atorvastatin 10 mg tablet 10 mg PO QHS cholesterol 02/27/20 Unknown History hydroxyzine pamoate 50 mg capsule 100 mg PO Q8H Anxiety 02/27/20 Unknown History venlafaxine 37.5 mg 37.5 mg PO DAILY mood 02/27/20 07/13/22 History capsule,extended release 24 hr albuterol sulfate 90 mcg/actuation 2 puff inhalation Q4H PRN sob 01/06/21 Unknown History aerosol inhaler (ProAir HFA) lactulose 10 gram/15 mL oral 10 g PO DAILY PRN Constipation 01/06/21 Unknown History solution sennosides 8.6 mg-docusate sodium 2 tab-cap PO DAILY stool softener 01/06/21 Unknown History 50 mg tablet (Senna-S) rimegepant 75 mg disintegrating 75 mg PO PRN PRN Migraine Headache 06/27/22 Unknown History tablet (Nurtec ODT) venlafaxine 75 mg tablet 75 mg PO QHS mood 06/27/22 Unknown History morphine (PF) in 0.9 % sod chl See Rx Instructions .Route .COMPLEX 06/29/22 Unknown History gabapentin 800 mg tablet 1,200 mg PO BID neuropathy 09/25/23 Unknown History gabapentin 800 mg tablet 800 mg PO .noon nerves 09/25/23 Unknown History ibuprofen 800 mg tablet (IBU) 800 mg PO Q12H pain 09/25/23 Unknown History levetiracetam 1,000 mg tablet 1,500 mg PO QHS seizures 09/25/23 Unknown History vibegron 75 mg tablet (Gemtesa) 75 mg PO DAILY bladder 09/25/23 Unknown History hydrocodone-acetaminophen 5-325mg 1 tab PO Q6H PRN PRN Pain 3 days 10/24/24 Unknown Rx 5mg-325mg #10 TABLETS Allergy/AdvReac Type Severity Reaction Status Date / Time bee venom protein (honey bee) Allergy Other Verified 10/24/24 13:25 Penicillins Allergy Unknown Verified 10/24/24 13:25 Surgical History Hx of bladder repair surgery History of carpal tunnel repair History of tubal ligation History of brain surgery Social History Smoking Status: Current every day smoker tobacco type: e-cigarettes ROS ROS ED Constitutional Constitutional ED: Denies chills or fever(s) Eyes Eyes: Denies blurry vision or change in vision ENT ENT ED: Denies rhinorrhea or sore throat Cardiovascular Cardiovascular: Denies chest pain or palpitations Respiratory/Chest Respiratory/Chest: Denies cough or dyspnea Gastrointestinal Gastrointestinal: Denies nausea or vomiting Genitourinary Genitourinary ED: Denies dysuria or hematuria Musculoskeletal Musculoskeletal: Denies back pain or neck pain Integumentary Denies abscess or rash Neurologic Neurologic: Denies headache(s) or weakness Allergic/Immunologic Allergic/Immunologic ED: Denies mouth swelling or urticaria EXAM Physical Exam Const Vital Signs: 10/24/24 13:25 Temperature 98.6 F Temperature Source Oral Pulse Rate 84 Respiratory Rate 18 Blood Pressure 123/83 H Blood Pressure Mean 96 Pulse Ox 97 Oxygen Delivery Method Room Air Positive well nourished and well developed General Appearance ED: well developed and NAD HEENT Reports moist mucous membranes Neck full ROM and supple Extremity Extremity Narrative: There is the superficial wound over the plantar aspect of the right foot over the head of the fifth metatarsal. There is no bleeding noted. There is no surrounding erythema. There is no warmth noted. Sensation was intact to light touch in all digits. Capillary refill is less than 2 seconds in all digits. There is good pedal pulses noted. Neuro oriented x3, CN's II-XII intact bilaterally, moves all extremities and no sensory deficits noted Sensorium / Orientation: alert MDM MDM MDM Narrative Medical decision making narrative: Differential diagnosis includes open wound to right foot, fracture, sprain, and contusion. X-rays of the right foot will be obtained to assess for fracture. Radiography Diagnostic Testing: X-rays of the right foot were obtained. There are 3 views. On my independent interpretation, there is no acute fracture or dislocation. There is no radiopaque foreign body noted. Radiologist also interpreted the x-rays and agrees. Treatment and Re-Evaluation Narrative: Patient was given a tetanus booster. Bacitracin dressing was applied to the wound. Patient was instructed to keep the wound clean and dry. Patient was advised of her x-ray findings. Patient was instructed to follow-up with her primary care physician in 5 to 7 days. Patient understood and was agreeable with the plan. All questions were answered. Discharge Plan Triage Chief Complaint: Lower Extremity Injury ED Provider: Geronimo Bradley Dx/Rx/DC Orders Clinical Impression: Open wound of right foot, Acute pain of right foot Instructions: ED Foot Contusion, ED Wound Care Prescriptions: New hydrocodone-acetaminophen 5-325 mg tablet 1 tab PO Q6H PRN PRN (Reason: Pain) 3 Days Qty: 10 0RF No Action baclofen 10 MG tablet 20 mg PO 4X/DAY acetaminophen [Tylenol] 325 MG tablet 1,000 mg PO TID PRN (Reason: pain) omeprazole 40 MG capsule,delayed release(DR/EC) 40 mg PO DAILY levetiracetam 1,000 MG tablet 1,000 mg PO .am lacosamide [Vimpat] 50 MG tablet 100 mg PO BID ferrous sulfate 325 MG tablet 325 mg PO DAILY venlafaxine 37.5 MG capsule,extended release 24hr 37.5 mg PO DAILY atorvastatin 10 MG tablet 10 mg PO QHS hydroxyzine pamoate 50 MG capsule 100 mg PO Q8H albuterol sulfate [ProAir HFA] 90 mcg/actuation Hfa Aerosol Inhaler 2 puff INHALATION Q4H PRN (Reason: sob) lactulose 10 gram/15 mL Solution 10 g PO DAILY PRN (Reason: Constipation) sennosides-docusate sodium [Senna-S] 8.6-50 mg Tablet 2 tab-cap PO DAILY venlafaxine 75 mg Tablet 75 mg PO QHS Nurtec ODT 75 mg Tablet,Disintegrating 75 mg PO PRN PRN (Reason: Migraine Headache) morphine (PF) in 0.9 % sod chl See Rx Instructions .ROUTE .COMPLEX Rx Instructions: PATIENT HAS CONT MORPHINE PAIN PUMP 263 MCG Q24 HOURS/NEEDS FOLLOW UP ON ARRIVAL Gemtesa 75 mg tablet 75 mg PO DAILY gabapentin 800 mg tablet 1,200 mg PO BID gabapentin 800 mg tablet 800 mg PO .noon levetiracetam 1,000 mg tablet 1,500 mg PO QHS ibuprofen [IBU] 800 mg tablet 800 mg PO Q12H Primary Care Provider: Kacie Smiley SCRUB TECH Referrals: Kacie Smiley SCRUB TECH, [facility] TE[facility]-C [Primary Care Provider] - 5-7 Days Print Language: Telugu Disposition Disposition: Home, Self Care
--- NOTE | 2024-10-24 14:25 | RAD_ITS ---
PROCEDURE: FOOT MIN 3 VIEWS 10/24/2024 REASON FOR EXAM: INJURY/PAIN TECHNIQUE: FOOT MIN 3 VIEWS COMPARISON: None FINDINGS: Bones: No visible fracture. No suspicious bone lesion. Joints: Normal alignment. Soft tissues: Soft tissues are unremarkable. Other: RAD/Foot min 3 Views IMPRESSION: No acute abnormality is seen. Reading Location: [id number]
[2024-10-24] MEDS: Diphth,Pertuss(Acell),Tet Vac 0.5 ML Vial IM (14:31)
[2024-10-24 15:35] VITALS: BP 123/83; PULSE 84; RESP 18; TEMP 37.1; O2SAT 97
== END 2024-10-24 15:38 | disposition home or self-care (01) ==
PROVIDERS: Emergency Provider Emergency Medicine; PCP Nurse Practitioner Adult Health; Visit Provider Emergency Medicine
DX: S91.301A Unspecified open wound, right foot, initial encounter (principal); R56.9 Unspecified convulsions; E78.00 Pure hypercholesterolemia, unspecified; M79.671 Pain in right foot; W22.8XXA Striking against or struck by other objects, initial encounter; K21.9 Gastro-esophageal reflux disease without esophagitis; Z79.899 Other long term (current) drug therapy; F41.9 Anxiety disorder, unspecified; F32.A Depression, unspecified; Z98.51 Tubal ligation status; F17.290 Nicotine dependence, other tobacco product, uncomplicated; Z23 Encounter for immunization
CPT/HCPCS: 73630; 90471; 90715; 99284